=== PATIENT | male | born 1970 | race Caucasian/White ===

== ENCOUNTER 2019-10-31 14:33 | Day surgery (SDC) | payer OTHER, SELFPAY ==
[2019-10-31 15:06] VITALS: BP 144/88; PULSE 56; RESP 22; TEMP 36.4; O2SAT 99; BMI 30.8
[2019-10-31] MEDS: Lactated Ringers 1,000 ML 100 ML IV (15:37)
[2019-10-31] MEDS: Cefazolin 2 GM in 0.9% Normal Saline 100 ML IV (16:06)
--- NOTE | 2019-10-31 16:14 | PCM.DC.URO ---
Discharge Diet: Light diet - advance as tolerated Discharge Activity: Return to Normal Activity Call your doctor if your incision/area has: Sudden Increased Bleeding Call your doctor if you observe: Fever of 101 or Higher Suture Line Care: Avoid Pulling/Pushing, Avoid Pinching/Bending Instructions: Treating Kidney Stones: Ureteroscopic Stone Removal Allergies/Adverse Reactions: Allergies Penicillins Allergy (Verified 10/30/19 16:19) Unknown Medications to take at Discharge Ramipril [Altace] 5 mg PO DAILY #30 capsule 04/26/17 Amlodipine [Norvasc] 5 mg PO DAILY 10/31/19 Aspirin [Aspir 81] 81 mg PO DAILY 10/31/19 Ciprofloxacin [Cipro] 500 mg PO BID #6 tab 10/31/19 Hydrocodone/Acetaminophen [Montrose 5-325 Tablet] 1 each PO Q4H PRN PRN 5 Days #15 tablet 10/31/19 Phenazopyridine [Pyridium] 100 mg PO TID PRN PRN 5 Days #14 tab 10/31/19 The following prescriptions were given: Ciprofloxacin [Cipro] 500 mg PO BID #6 tab Transmission Status: Pending to [facility] Hydrocodone/Acetaminophen [Montrose 5-325 Tablet] 1 each PO Q4H PRN PRN 5 Days #15 tablet PRN Reason: Pain Score 1-10/10 Transmission Status: Sent to [facility] Phenazopyridine [Pyridium] 100 mg PO TID PRN PRN 5 Days #14 tab PRN Reason: burning Transmission Status: Pending to [facility] Primary Care Physician: Jose Arita DO [Primary Care Provider] - Test Results: Test results from this visit will be discussed in further detail at your follow-up appointment, if applicable. Please Follow Up With: Niall Pete MD When: please call to make an appointment.
--- NOTE | 2019-10-31 17:29 | PCM.OPRPT ---
Report of Operation Date of Procedure: 10/31/19 Pre-Operative Diagnosis: Left large distal ureteral calculi Post-Operative Diagnosis: The same Surgery/Procedure Performed:: Cystoscopy, left retrograde pyelogram, balloon dilation of the left ureter, laser lithotripsy of stone and ureteroscopy of the left ureter. Basket of fragments. Left stent placement. Description of Surgical Findings:: 49-year-old male has been having intermittent pain for the last year on the left side he finally got a CAT scan that demonstrated a large stone causing obstruction of the left kidney with a large stone in the distal left ureter measures about 13 mm in size when taken back to surgery today to laser the stone he will need a balloon dilation and will place a stent. 49-year-old male taken back to the operating room after smooth induction of general anesthesia he was placed supine on the table with the legs in dorsolithotomy position, the penis and testicles were prepped and draped in usual sterile fashion, went into the bladder with a 21 Trinidadian rigid cystourethroscope, the entire length the urethra was normal the prostate was normal the trigone was normal inside the bladder there is no tumors or stones. I then cannulated the left ureteral orifice with a Glidewire and a Pollack catheter performed a retrograde pyelogram could see a large stone in the distal left ureter and contrast going up into the kidney. I then advanced a wire up into the left kidney left that wire in place backloaded off the wire and then left the wire in place, I then went back into the bladder with a 21 Trinidadian scope cannulated the left ureteral orifice with a wire and then a balloon dilator I advanced the balloon dilator up to the stone but not beyond the and perform dilation of the stone with a 12 Trinidadian 10 cm balloon dilator after this was accomplished then I backloaded the balloon dilator left the wire in place and left the safety wire in place and then over the working wire went in with a flexible ureteroscope the ureter was quite tight in the distal ureter I got through the ureteral orifice and then I found an area of very tight narrowing and then behind this was the stone there was actually one large stone and one smaller stone I started with lithotripsy on the smaller stone lasered into the little tiny pieces and then I went to the larger stone and lasered this little tiny pieces was quite a large stone took a long time the laser Lasering it the stone fragments and kept coming back down on the flexible scope making it difficult to continue to work so then I backed out the flexible scope during this process and I lost safety wire I then went back in with the semirigid ureteroscope put the safety wire in place backloaded off the safety wire and then went back into the bladder next to the safety wire. This time I went with a semirigid ureteroscope was able to get in the distal ureter could see the stones that were stuck behind the area of inflammation and narrowing in the ureter continued to laser the stone some more than once I thought I had the stones all lasered a little tiny pieces then I used a flexible basket and I basketed fragments I then and when the last basketing grabbed the ladder fragments but then I could not pull out the ureter I did not pull hard so I left a basket in place I cut off the handle the basket backloaded off the basket over the ureteroscope and then went back in use the laser again to laser the stones out of the basket this broke to basket 3 and then I pulled on the basket wire and then the basket came out more stones came out with the basket then I kept lasering some more stones in the distal ureter I backloaded off out of the ureter and then put it safety wire back in and then went in with the flexible ureteroscope I went all the way up to the kidney with the flexible ureteroscope worked my way down the ureter there is no major fragments along the course of the ureter got to the distal ureter just infused tiny fragments there in the distal ureter but nothing that needed more treatment of these were tiny fragments that should pass on their own I then put a wire back up into the left kidney and then over the wire I advanced a stent we backloaded the scope over the wire and then advanced a 6 Trinidadian by 26 cm stent once a stent was in good position I pulled the wire the stent coiled in the kidney bladder good position I then drained the bladder completely we left the string on the stent but I did cut the string short so would get extracted accidentally. Patient's anesthetic was reversed taken back to PACU good condition I went spoke to the family regarding the stone and the lasering of the stone procedure. Type of Anesthesia:: General Drains: stent left side 6fr x 26 cm - Admit VTE Documentation VTE Present on Admission: No VTE Mechan Device Prophylaxis: SCD's
[2019-10-31 17:39] VITALS: BP 138/88; BP 144/88; PULSE 73; RESP 16; TEMP 36.9; O2SAT 99
[2019-10-31 17:45] VITALS: BP 144/88; BP 145/95; PULSE 67; RESP 20; O2SAT 99
[2019-10-31 18:00] VITALS: BP 144/88; BP 156/98; PULSE 67; RESP 18; O2SAT 100
[2019-10-31 18:07] VITALS: BP 144/88; BP 147/90; RESP 16; TEMP 36.8; O2SAT 100
[2019-10-31 18:32] VITALS: BP 144/85; BP 144/88; PULSE 66; RESP 16; TEMP 36.3; O2SAT 99
== END 2019-10-31 18:44 | disposition home or self-care (01) ==
LOC: SDC 14:36 → AC 14:37
PROVIDERS: PCP Family Medicine; Referring Provider Urology; Visit Provider Urology
PROC: 0TJ98ZZ Inspection of Ureter, Via Natural or Artificial Opening Endoscopic (ICD-10-PCS; CPT 52352; principal; 2019-10-31 15:50)
DX: N20.1 Calculus of ureter (principal); I10 Essential (primary) hypertension; K21.9 Gastro-esophageal reflux disease without esophagitis; I69.322 Dysarthria following cerebral infarction; Z79.899 Other long term (current) drug therapy; Z79.82 Long term (current) use of aspirin
CPT/HCPCS: 00918; 52356; 76000; J7120; C1769; C2617; J2405

== ENCOUNTER → 2020-04-18 13:33 | Outpatient (CLI) | payer OTHER, SELFPAY ==
--- NOTE | 2020-04-18 13:39 | CT_ITS ---
STUDY: CT ABDOMEN AND PELVIS WITHOUT CONTRAST REASON FOR EXAM: Male, 49 years old. Right flank pain RADIATION DOSAGE (If Supplied By Facility): CTDIvol = ( 13.87 ) mGy, DLP = ( 715.01 ) mGycm TECHNIQUE: Transaxial images were obtained from the dome of the diaphragm to the symphysis pubis without oral contrast, and without intravenous contrast. Sagittal and coronal images were reconstructed. Individualized dose optimization techniques were used for this CT. COMPARISON: None. FINDINGS: Evaluation of the abdominal viscera is limited in the absence of intravenous contrast. The visualized lung bases are clear. The visualized portions of the heart and pericardium are within normal limits. There are no calcified gallstones present. There is a simple cyst noted in the liver. The spleen is normal in size. The pancreas demonstrates an unremarkable unenhanced appearance. The adrenal glands are within normal limits. The left kidney is atrophic. There are bilateral subcentimeter nonobstructing renal collecting system stones, measuring up to 2 mm. There are no ureteral stones. There is no hydronephrosis. Normal visualized stomach. There is no bowel obstruction or inflammation. The appendix is visualized and appears normal. The aorta is normal in caliber. There is no abdominal or pelvic free air, free fluid, fluid collection or lymphadenopathy. There are no destructive osseous lesions. CT/Abdomen/Pelvis without Cont IMPRESSION: Bilateral subcentimeter nonobstructing renal collecting system stones, measuring up to 2 mm. No ureteral stones. No hydronephrosis. Atrophic left kidney. No bowel obstruction or inflammation. Normal appendix. Electronically Signed: Mike Bradley, at 14:09 EDT Tel , Service support ,
== END ==
PROVIDERS: PCP Family Medicine; Referring Provider Urology; Visit Provider Urology
DX: N20.1 Calculus of ureter (principal)
CPT/HCPCS: 74176

== ENCOUNTER → 2020-11-25 13:06 | Outpatient (CLI) | payer OTHER, SELFPAY | PROVIDERS: PCP Family Medicine; Referring Provider Physician Assistant; Visit Provider Physician Assistant | DX: Z03.818 Encounter for observation for suspected exposure to other biological agents ruled out (principal) | CPT/HCPCS: 87635; C9803; U0002 ==

== ENCOUNTER → 2022-02-06 | Outpatient (CLI) | payer OTHER, SELFPAY | END | disposition home or self-care (01) | LOC: MTLAB 10:40 | PROVIDERS: PCP Family Medicine; Referring Provider Urology; Visit Provider Urology | DX: Z12.5 Encounter for screening for malignant neoplasm of prostate (principal) | CPT/HCPCS: 36415; 84153; G0103 ==

== ENCOUNTER → 2022-03-26 | Outpatient (CLI) | payer OTHER, SELFPAY ==
--- NOTE | 2022-03-26 09:19 | EKG12_ITS ---
Test Reason : PREOP Blood Pressure : / mmHG Vent. Rate : 071 BPM Atrial Rate : 071 BPM P-R Int : 156 ms QRS Dur : 078 ms QT Int : 366 ms P-R-T Axes : 011 -25 018 degrees QTc Int : 397 ms Normal sinus rhythm Normal ECG Confirmed by SUMEET MURPHY, CHELO ([id number]), editor producer ZE KEEN ([id number]) on 03/27/2022 10:30:31 A M Referred By: Todd Osborn Confirmed By:SAMUEL FAY MD
[2022-03-26 11:22] LABS: Absolute Lymphocyte Count 1.86 X10^3/uL (0.83-4.51); Absolute Neutrophil Count 7.2 X10^3/uL (2.0-7.7); Basophil# 0.06 X10^3/uL; Basophil% 0.6 % (0-1); Eosinophil# 0.09 X10^3/uL; Eosinophils% 0.9 % (0-5); Hematocrit 45.3 % (40-54); Hemoglobin 15.1 g/dL (13.0-16.5); Lymphocyte # 1.86 X10^3/ul (0.83-4.51); Lymphocyte % 18.4 % (19-41); Mean Corp Hgb Conc 33.3 g/dL (32-36); Mean Corpuscular Hgb 32.5 pg (27.0-32.0); Mean Corpuscular Volume 97.6 fL (80-94); Monocyte# 0.82 X10^3/uL; Monocyte% 8.1 % (0-10); NRBC Flagged by Analyzer 0 % (0-5); Neutrophil # 7.21 X10^3/uL (2.7-7.7); Neutrophil % 71.4 % (47-70); Platelet Count 311 K/mm3 (150-450); RBC Distribution Width CV 12.7 % (11.6-14.6); RBC Distribution Width SD 45.4 fl (35.1-43.9); Red Blood Count 4.64 M/mm3 (4.6-6.2); White Blood Count 10.1 K/mm3 (4.4-11.0)
[2022-03-26 11:28] LABS: International Normalized Ratio 0.9; Prothrombin Time (Protime)PT. 11.8 SECONDS (11.7-14.9)
[2022-03-26 11:47] LABS: Anion Gap 5 (5-15); BUN 26 mg/dL (7-18); BUN/Creat Ratio 21.7 RATIO (10-20); Calcium,Total 9.1 mg/dL (8.5-10.1); Chloride 105 mmol/L (98-107); EST Glomerular Filtration Rate 67 mL/min (>60); Est Glom Filt Rate - Afr Amer 81 mL/min (>60); Glucose 93 mg/dL (74-106); Potassium 4.4 mmol/L (3.5-5.1); Sodium Level 140 mmol/L (136-145)
== END | disposition home or self-care (01) ==
LOC: PSN 08:51
PROVIDERS: PCP Family Medicine; Referring Provider Orthopaedic Surgery; Visit Provider Orthopaedic Surgery
DX: Z01.818 Encounter for other preprocedural examination (principal)
CPT/HCPCS: 36415; 80048; 85025; 85610; 85730; 93005

== ENCOUNTER 2022-07-16 10:49 | Observation (INO) | payer OTHER, SELFPAY ==
[2022-07-16] VITALS (10 sets, daily range): BP systolic 149–177; BP diastolic 90–107; PULSE 58–88; RESP 16–18; TEMP 35.9–37.1; O2SAT 95–99; BMI 27.7; BMI 27.6
--- NOTE | 2022-07-16 11:38 | CT_ITS ---
STUDY: CT BRAIN WITHOUT CONTRAST REASON FOR EXAM: Male, 51 years old. Dizziness, prior stroke RADIATION DOSAGE (If Supplied By Facility): CTDIvol = ( 47.06 ) mGy, DLP = ( 890.33 ) mGycm TECHNIQUE: Transaxial CT imaging of the brain was performed without administration of intravenous contrast material. Individualized dose optimization techniques were used for this CT. COMPARISON: No relevant priors. FINDINGS: Normal soft tissue structures. Normal calvarium. Normal size ventricles and extra-axial spaces for the patient''s age. Normal white matter tracts of the cerebral hemispheres. Annual colon in the anterior limb of the left internal capsule. Normal brainstem. Normal cerebellum. There is no intracranial hemorrhage. There are no findings of an acute ischemic infarction. Minimal mucosal thickening of the ethmoid sinuses. CT/Brain/Head without Contrast IMPRESSION: Tiny lacunae seen in the anterior limb of the left internal capsule. Electronically Signed: Dionicio Gonzales MD at 12:36 EDT ,
--- NOTE | 2022-07-16 11:40 | EKG12_ITS ---
Test Reason : HTN/DIZZY Blood Pressure : / mmHG Vent. Rate : 063 BPM Atrial Rate : 063 BPM P-R Int : 162 ms QRS Dur : 092 ms QT Int : 418 ms P-R-T Axes : 006 -24 027 degrees QTc Int : 427 ms Normal sinus rhythm Minimal voltage criteria for LVH, may be normal variant ( R in aVL ) Borderline ECG Confirmed by LACHO MURPHY, JOANN ([id number]), deputy editor in chief ZE KEEN ([id number]) on 07/20/2022 1:08:34 PM Referred By: BREN Confirmed By:JOANN MONK MD
--- NOTE | 2022-07-16 11:42 | EX.ED.DYSGE1 ---
HPI History of Present Illness Chief Complaint: Hypertension Informant: patient Narrative Narrative: Patient presents with some dizziness and elevated blood pressure. He does have a history of blood pressure on 2 meds. He took an extra amlodipine this morning. But he notes that his blood pressures been up. It is normally about 130/80. He was diagnosed with blood pressure about 5 years ago after he had a stroke. Since the stroke he has had some residual speech difficulty and he also does have some mild dizziness that has occurred since then. It is usually very manageable and he does not take anything specifically for that. However, the dizziness is increased over approximately the last few days to a week. It did coincide with the onset of COVID symptoms. He was positive on Wednesday. He was started on Lagevrio. Not having focal numbness tingling weakness. Not having visual changes. Nothing specifically makes the dizziness better or worse. It does not sound like true vertigo but more of an overall sense of imbalance. PFSH PFSH Home Medications ramipril 5 mg capsule 5 mg PO DAILY ##30 04/26/17 [Rx Last Taken 10/31/19 06:00] amlodipine 5 mg tablet 5 mg PO DAILY 10/31/19 [History Last Taken 10/31/19 06:00] aspirin 81 mg tablet,delayed release 81 mg PO DAILY 10/31/19 [History Last Taken Unknown] allopurinol 100 mg tablet 100 mg PO DAILY 07/16/22 [History Last Taken Unknown] atorvastatin 40 mg tablet 40 mg PO QHS 07/16/22 [History Last Taken Unknown] Allergy/AdvReac Type Severity Reaction Status Date / Time Penicillins Allergy Unknown Verified 07/16/22 10:49 Social History Smoking Status: Never smoker ROS ROS ED Constitutional Constitutional ED: Reports subjective Eyes Eyes: Denies change in vision ENT ENT ED: Reports sore throat Cardiovascular Cardiovascular: Denies chest pain or palpitations Respiratory/Chest Respiratory/Chest: Reports cough; Denies dyspnea Gastrointestinal Gastrointestinal: Reports other Details: Appetite has been down mildly with COVID ; Denies nausea or vomiting Musculoskeletal Musculoskeletal: Reports myalgias Integumentary Denies Abrasions or rash Neurologic Neurologic: Reports other Details: See history of present illness ; Denies headache(s) or weakness Hematologic/Lymphatic Hematologic/Lymphatic: Reports other Details: Patient does take baby aspirin ; Denies anemia Allergic/Immunologic Allergic/Immunologic ED: Denies urticaria EXAM Physical Exam Const Vital Signs: 07/16/22 10:50 07/16/22 11:15 07/16/22 14:25 Temperature 96.7 F L Temperature Source Temporal Pulse Rate 70 Respiratory Rate 16 Respiratory Effort Normal Non-Labored Respiratory Pattern Normal Blood Pressure 177/107 H 162/102 H Blood Pressure Mean 130 122 Pulse Ox 99 Oxygen Delivery Method Room Air Positive well nourished and well developed General Appearance ED: well developed and NAD; Negative for cyanotic or diaphoretic HEENT Reports moist mucous membranes Eyes PERRL and EOMs intact bilaterally Eyes Narrative: No nystagmus even with extreme lateral gaze or with positional changes General Eye ED: Negative for pale conjunctiva or scleral icterus Neck no lymphadenopathy Resp normal respiratory effort Cardio regular rate and regular rhythm GI normal to inspection, nondistended, normoactive bowel sounds and non-tender Palpation: soft Back/Spine no CVA tenderness Extremity normal to inspection General Extremety ED: Negative for edema or tenderness General Extremity: Negative for edema Neuro Neuro Narrative: Patient awake alert appropriate. Coordinated motion. No weakness. He has slight difficulty with speech but this is chronic from prior stroke and does not affect his ability to be under stood in any way. Although this would give him 1 point for NIH this is not an acute change. Sensorium / Orientation: alert Psych mental status grossly normal Skin no rashes or lesions noted and no wounds MDM MDM MDM Narrative Medical decision making narrative: Patient's blood work shows CBC with just minimal elevation in hemoglobin. This might be due to mild dehydration. Electrolytes are overall normal. Glucose is normal. CT scan did show tiny lacunar seen in anterior limb of the left internal capsule. This was discussed with radiologist. This is new finding since his last CT. But we do not have a recent CT. I do not know if this is acute in the cause of his symptoms. He did have some dizziness after his prior stroke but that was more of a brainstem stroke. He has other reasons for the dizziness including both Legevrio. However, this patient has had prior strokes, his blood pressure is up, he has higher risk. Therefore we have to be acutely concerned about the CT finding. We are attempting to contact [facility] so they can download copies of their most recent images that allow comparison. We did discuss the case with the [facility] transfer line. But they have 26 people waiting for beds including a person has been waiting 2 days at an outside hospital. They do not have the capacity at this time to accept him. They state the rest of the [facility] system is also full and [place]. We discussed this with the patient and we will keep him here. Case was also discussed with hospitalist. Lab Data Attestation: I reviewed the patient's lab results. Labs: Laboratory Results - last 24 hr 07/16/22 07/16/22 11:11 11:11 WBC 5.9 RBC 5.31 Hgb 17.3 H Hct 47.8 MCV 90.0 MCH 32.6 H MCHC 36.2 H RDW Std Deviation 39.8 RDW Coeff of Suzi 12.0 Plt Count 244 MPV 10.0 Immature Gran % (Auto) 0.200 Neut % (Auto) 72.0 H Lymph % (Auto) 17.7 L [place] % (Auto) 8.8 Eos % (Auto) 1.0 Baso % (Auto) 0.3 Absolute Neuts (auto) 4.2 Absolute Lymphs (auto) 1.04 Nucleated RBC % 0 Sodium 138 Potassium 3.8 Chloride 105 Carbon Dioxide 24.0 Anion Gap 9 BUN 13 Creatinine 1.07 Estim Creat Clear Calc 79.84 Est GFR (MDRD) Af Amer 93 Est GFR (MDRD) Non-Af 77 BUN/Creatinine Ratio 12.1 Glucose 112 H Calcium 8.9 Radiography Diagnostic Testing: Clinical Impression(s) from Imaging Studies Brain CT 07/16/22 11:38 IMPRESSION: Tiny lacunae seen in the anterior limb of the left internal capsule. Electronically Signed: Dionicio Gonzales MD at 12:36 EDT , EKG Initial EKG: Comments: EKG done as part of work-up of blood pressure and dizziness. EKG read by me shows a normal sinus rhythm with overall rate at 63. There is no ectopy. No acute ST elevation or depression. UT interval, QRS duration and QTc are normal. The EKG is similar to 26 March Discharge Plan Dx/Rx/DC Orders Clinical Impression: Dizziness, Elevated blood pressure reading, Abnormal finding on CT scan Disposition Disposition: Acute Care Hospital [facility]
[2022-07-16] MEDS: cloNIDine HCl 0.1 MG Tablet PO (11:50)
[2022-07-16 11:55] LABS: Absolute Lymphocyte Count 1.04 X10^3/uL (0.83-4.51); Absolute Neutrophil Count 4.2 X10^3/uL (2.0-7.7); Basophil# 0.02 X10^3/uL; Basophil% 0.3 % (0-1); Eosinophil# 0.06 X10^3/uL; Hematocrit 47.8 % (40-54); Hemoglobin 17.3 g/dL (13.0-16.5); Lymphocyte # 1.04 X10^3/ul (0.83-4.51); Lymphocyte % 17.7 % (19-41); Mean Corp Hgb Conc 36.2 g/dL (32-36); Mean Corpuscular Hgb 32.6 pg (27.0-32.0); Monocyte# 0.52 X10^3/uL; Monocyte% 8.8 % (0-10); NRBC Flagged by Analyzer 0 % (0-5); Neutrophil # 4.23 X10^3/uL (2.7-7.7); Platelet Count 244 K/mm3 (150-450); RBC Distribution Width SD 39.8 fl (35.1-43.9); Red Blood Count 5.31 M/mm3 (4.6-6.2); White Blood Count 5.9 K/mm3 (4.4-11.0)
[2022-07-16 12:04] LABS: Anion Gap 9 (5-15); BUN 13 mg/dL (7-18); BUN/Creat Ratio 12.1 RATIO (10-20); Calcium,Total 8.9 mg/dL (8.5-10.1); Chloride 105 mmol/L (98-107); Creatinine, Serum 1.07 mg/dL (0.70-1.30); EST Glomerular Filtration Rate 77 mL/min (>60); Est Glom Filt Rate - Afr Amer 93 mL/min (>60); Estimated Creatinine Clearance 79.84 ml/min; Glucose 112 mg/dL (74-106); Potassium 3.8 mmol/L (3.5-5.1); Sodium Level 138 mmol/L (136-145)
--- NOTE | 2022-07-16 14:38 | PCM.HP.STD ---
HPI - General General Date of Admission: 07/16/22 Date of Service: 07/16/22 Chief Complaint: Imbalance, Dizziness, Elevated BP, recent COVID + Dx. HPI Narrative The patient is a 51 y/o M w/ PMHx: CVA ~ 5 years prior with residual speech difficulties and mild dizziness associated, HTN, HLD, Gout who presents to the [facility] ED on 07/16/22 with history of onset of dizziness with elevated blood pressures noted to currently be on 2 blood pressure medications prompting him to take an extra of his of his amlodipine this morning however his blood pressure remained up noting it is normally 130/80 noting specifically that his dizziness is increased over the last few days to 1 week with specifically coincided onset of COVID type symptoms (headache, low grade T, congestion, rhinorrhea, cough, sore throat, myalgias, nausea, poor intake) with a positive test on Wednesday with full COVID vaccination status including boosters with initiation at that time on with no specific neurological new deficits or visual changes but no specific vertiginous just an overall sense of increased imbalance. He notes this has been constant but worse in severity starting the week prior mid-week. Work-up in the ED included T96.7, heart rate 70, BP 177/107, respiratory rate 16, 99% on room air, CBC with MAC 5.9, hemoglobin of 17.3, platelet 244 without marked shift, BMP with glucose 112 otherwise not marked appearing, EKG with sinus rhythm with no acute evidence of ischemia, CT head with a tiny lacunae seen in the anterior limb of the internal left capsule new from his prior last CT imaging. He did have CT head at [facility] 08/2021 that is attempting to be accessed for comparison. [facility], [facility] Medical History (Updated 07/16/22 @ 18:[address] Renetta Abad MD) Chronic back pain GERD (gastroesophageal reflux disease) Gout High cholesterol Hypertension Stroke/cerebrovascular accident Home Medications amlodipine 5 mg tablet 5 mg PO DAILY heart 10/31/19 [History Last Taken 07/16/22] aspirin 81 mg tablet,delayed release 81 mg PO DAILY heart 10/31/19 [History Last Taken 07/16/22] allopurinol 100 mg tablet 100 mg PO DAILY gout 07/16/22 [History Last Taken 07/16/22] omeprazole 40 mg capsule,delayed release 40 mg PO DAILY gerd 07/16/22 [History Last Taken 07/16/22] ramipril 5 mg capsule 5 mg PO DAILY bp 07/16/22 [History Last Taken 07/16/22] zolpidem 10 mg tablet (Ambien) 10 mg PO QHS PRN Sleep 07/16/22 [History Last Taken 2 Weeks Ago ~07/02/22] Allergy/AdvReac Type Severity Reaction Status Date / Time Penicillins Allergy Unknown Verified 07/16/22 10:49 Family History (Updated 07/16/22 @ 18:[address] Renetta Abad MD) Mother Diabetes Hypertension Father Diabetes Hypertension Surgical History (Updated 07/16/22 @ 18:[address] Renetta Abad MD) H/O laminectomy H/O lithotripsy Status post percutaneous transluminal angioplasty ([employer]) with stent placement Social History (Updated 07/16/22 @ 18:[address] Renetta Abad MD) household members: spouse Smoking Status: Never smoker alcohol intake: current alcohol intake frequency: holidays/special occasions only substance use type: does not use ROS ROS Narrative Admission Review of Systems: CONSTITUTIONAL: No weight loss, + low grade fever, chills, weakness or fatigue. HEENT: + Headache, congestion, rhinorrhea, sore throat. Eyes: No visual loss, blurred vision, double vision or yellow sclerae. Ears, Nose, Throat: No hearing loss, sneezing. SKIN: No rash or itching, lesions, wounds. CARDIOVASCULAR: No chest pain, chest pressure or chest discomfort, palpitations, edema, orthopnea, syncopal events. RESPIRATORY: + cough, No dyspnea, marked sputum, wheezing, hemoptysis. GASTROINTESTINAL: + anorexia, nausea, No vomiting, diarrhea, abdominal pain, melena, BRBPR. GENITOURINARY: No dysuria, frequency, urgency or retention. NEUROLOGICAL: + headache, dizziness above baseline, Hx CVA w/ chronic dizziness and dysarthria. No syncope, paralysis, ataxia, numbness or tingling in the extremities, focal weakness, change in bowel or bladder control, seizure. MUSCULOSKELETAL: + muscle, back pain, joint pain or stiffness. HEMATOLOGIC: No anemia, bleeding or bruising. LYMPHATICS: No enlarged nodes. No history of splenectomy. PSYCHIATRIC: No history of depression or anxiety. ENDOCRINOLOGIC: No reports of sweating, cold or heat intolerance. No polyuria or polydipsia. ALLERGIES: No history of asthma, hives, eczema or rhinitis. Vital Signs Vital Signs Vital Signs: 07/16/22 10:50 07/16/22 11:15 07/16/22 14:25 Temperature 96.7 F L Temperature Source Temporal Pulse Rate 70 Respiratory Rate 16 Respiratory Effort Normal Non-Labored Respiratory Pattern Normal Blood Pressure 177/107 H 162/102 H Blood Pressure Mean 130 122 Pulse Ox 99 Oxygen Delivery Method Room Air Weight Weight: 187 lb 9.814 oz Body Mass Index (BMI) 27.7 Physical Exam Narrative Physical Examination: General: Awake, alert, oriented x 3 and cooperative, seated upright in the ED bed, fatigued, frequent coughing fits with attempts to talk. Skin: Normal color, normal turgor, no icterus, no cyanosis. HEENT: AT/NC, EOMI, PERRLA, mildly dry MM, no carotid bruits or JVD noted. Lungs: Diminished, greater bases, coughing elicited with any deep inspiratory effort, no rales, ronchi or wheezing. Heart: Regular rate and rhythm; no gallop, rub audible. Abdomen: Soft, NTTP, ND, hyperactive BS, no HSM. Extremities: No cyanosis, clubbing, or edema. Neurological: Patient awake, alert, oriented as noted, cognitive function intact; pupils equally reactive to light and accommodation, cranial nerves II-XII grossly normal, chronic dysarthria present and unchanged, moving all 4 extremities, no focal deficits, strength preserved, sensation intact, finger-nose and vbci-ru-avot appropriate, main complaint is dizziness and imbalance. Psychiatric: Affect appears fatigued, ill-appearing, no acute evidence of depressive or anxiety feelings. Results Lab / Micro Data Result Diagrams: 07/16/22 11:11 07/16/22 11:11 Labs: Laboratory Results - last 24 hr 07/16/22 11:11: WBC 5.9, RBC 5.31, Hgb 17.3 H, Hct 47.8, MCV 90.0, MCH 32.6 H, MCHC 36.2 H, RDW Std Deviation 39.8, RDW Coeff of Suzi 12.0, Plt Count 244, MPV 10.0, Immature Gran % (Auto) 0.200, Neut % (Auto) 72.0 H, Lymph % (Auto) 17.7 L, [place] % (Auto) 8.8, Eos % (Auto) 1.0, Baso % (Auto) 0.3, Absolute Neuts (auto) 4.2, Absolute Lymphs (auto) 1.04, Nucleated RBC % 0 07/16/22 11:11: Sodium 138, Potassium 3.8, Chloride 105, Carbon Dioxide 24.0, Anion Gap 9, BUN 13, Creatinine 1.07, Estim Creat Clear Calc 79.84, Est GFR (MDRD) Af Amer 93, Est GFR (MDRD) Non-Af 77, BUN/Creatinine Ratio 12.1, Glucose 112 H, Calcium 8.[address] 07/16/22 11:38 IMPRESSION: Tiny lacunae seen in the anterior limb of the left internal capsule. Electronically Signed: Dionicio Gonzales MD at 12:36 EDT Reading Location ID and State: [facility] / [place] , Service support , Assessment & Plan Assessment/Plan (1) CVA (cerebral vascular accident): PLAN: Plan The patient is a 51 y/o M w/ PMHx: CVA ~ 5 years prior with residual speech difficulties and mild dizziness associated, HTN, HLD, Gout who presents to the [facility] ED on 07/16/22 with history of onset of dizziness with elevated blood pressures noted to currently be on 2 blood pressure medications prompting him to take an extra of his of his amlodipine this morning however his blood pressure remained up noting it is normally 130/80 noting specifically that his dizziness is increased over the last few days to 1 week with specifically coincided onset of COVID type symptoms (headache, low grade T, congestion, rhinorrhea, cough, sore throat, myalgias, nausea, poor intake) with a positive test on Wednesday with full COVID vaccination status including boosters with initiation at that time on with no specific neurological new deficits or visual changes but no specific vertiginous just an overall sense of increased imbalance. #1. Increased dizziness, imbalance with atypical CT head findings concerning for tiny lacunar infarct of the anterior limb of the internal left capsule which is new from prior imaging concerning for New Recent CVA with history of prior stroke with right vertebral artery stenting: Will admit to PCU, will obtain MRI Brain,CTA head and neck, attempting to obtain recent imaging from [facility] to compare, will obtain ECHO, PT/OT/Speech/Nutrition evaluation per protocol. Will allow permissive HTN pending MRI, maintain on asa, statin w/ AM FLP, fall precautions. Mag, TSH, HgbA1c, FLP pending. Of note dizziness could certainly be secondary to #2, will continue working up #[address] head findings until MRI of obtained #2. Acute Viral Syndrome, COVID-19: Will maintain on COVID precautions, will obtain sputum cultures, respiratory viral panel and urine antigens, will obtain D-dimer, procalcitonin, CRP, CPK, Ferritin, LDH, trop and BNP, continue supportive care including q 2 hour, given no notably hypoxia will defer antiviral treatment and decadron at this time but continue to closely monitor. #3. Hypertension: We will maintain permissive hypertension pending further stroke work-up as noted #1, as needed agents per stroke protocol. #4. Hyperlipidemia: We will continue patient on statin therapy, FLP in a.m. #5. Gout: We will continue patient home allopurinol regimen. #6. GERD: We will continue patient home omeprazole. #7. Chronic insomnia: Patient normally takes zolpidem to sleep which was discussed and given sedated nature of this medication we will temporarily hold and will use low-dose temazepam if needed. Given patient chronic issues with imbalance another agent, potentially trazodone may be better. #8. DVT prophylaxis: SCDs, Lovenox Charges/Coding Visit Charges Inpatient E&M: 24110 Init Hosp L3
--- NOTE | 2022-07-16 15:19 | ED.RN ---
Dr. Abad Ok'd this RN to give patient food. Pt. given ham sandwich and juice.
[2022-07-16 16:08] LABS: D-Dimer Quantitative (DVT/PE) 0.34 FEU/ug/m (0.27-0.49)
--- NOTE | 2022-07-16 16:15 | MRI_ITS ---
STUDY: MRI BRAIN WITHOUT CONTRAST REASON FOR EXAM: Male, 51 years old. CVA TECHNIQUE: Standardized multiplanar fat and water weighted pulse sequences were obtained. COMPARISON: CT of the brain 07/16/2022 MRI of the brain 05/04/2017 FINDINGS: Normal size of the ventricles and extra-axial spaces for the patient''s age. Normal white matter tracts of the supratentorial brain. Normal bilateral basal ganglia. Normal thalami. There is no extra-axial fluid accumulation. Normal flow voids within the major intracranial circulation suggesting patency by spin echo criteria. Normal sella turcica, pituitary gland, infundibular stalk, optic chiasm and hypothalamus. Normal tectal plate and pineal gland. Normal midbrain, and medulla. Mild chronic ischemic changes within the left pontine body. Normal cerebellum. Normal basal cisterns. Normal bilateral temporal bones. Normal bilateral internal auditory canals. No demonstrated orbital abnormality, within the constraints of a routine brain study. Minor mucosal thickening of the ethmoid and sphenoid sinuses Normal calvarium and skull base. Normal visualized soft tissue structures. Normal visualized upper cervical spine. MRI/Brain without Contrast IMPRESSION: Mild chronic ischemic changes in left pontine body. No significant periventricular white matter disease or acute infarct Electronically Signed: Todd Hassan MD at 18:21 EDT ,
--- NOTE | 2022-07-16 16:15 | CT_ITS ---
We are attempting to reach an attending provider to discuss findings. An addendum with communication details will be sent when the communication is complete. STUDY: CTA HEAD AND NECK WITH CONTRAST REASON FOR EXAM: Male, 51 years old. CVA. RADIATION DOSAGE (If Supplied By Facility): CTDIvol = ( ) mGy, DLP = ( 795.90 ) mGycm TECHNIQUE: CT angiography was performed with a multi-detector CT scanner. Data acquisition was obtained from the skull base through the vertex following intravenous administration of IV 100mL [id number]-370. MIP images were reconstructed from the axial data set. Post-processing of the angiographic images was performed, with multiplanar reformation and 3D reconstruction. Individualized dose optimization techniques were used for this CT. COMPARISON: CT of the brain, July 16, 2022. FINDINGS: Normal bilateral petrous carotid arteries. Normal right cavernous carotid artery with a normal supraclinoid bifurcation. Normal left cavernous carotid artery with a normal supraclinoid bifurcation. Normal right A1 segments of the anterior cerebral artery. Normal left A1 segments of the anterior cerebral artery. Normal intact anterior communicating artery (ACOM). Normal bilateral A2 segments of the anterior cerebral arteries. Normal right M1 and M2 segments of the middle cerebral arteries, with a normal M1 bifurcation. Normal left M1 and M2 segments of the middle cerebral arteries, with a normal M1 bifurcation. There is non-visualization of the right posterior communicating artery (PCOM). There is non-visualization of the left posterior communicating artery (PCOM). Normal bilateral vertebral arteries. Normal basilar artery with a normal basilar bifurcation. The visualized bilateral superior cerebellar (SCA) arteries are normal. Normal bilateral P1, P2 and visualized P3 segments of the posterior cerebral arteries. There is no demonstrated aneurysm of the huslia of [place]. There is no demonstrated abnormality of the visualized brain. AORTIC ARCH: Normal visualized aortic arch. Normal origins of the brachiocephalic, left common carotid, and left subclavian arteries. RIGHT CAROTID ARTERIES: Normal right common carotid artery (CCA). Minimal calcified plaque at the carotid bifurcation and carotid bulb without significant stenosis. Normal origin of the right internal carotid (ICA) artery without a hemodynamically significant stenosis. Normal visualized cervical portion of the right internal carotid artery. Normal origin of the right external carotid artery (ECA). LEFT CAROTID ARTERIES: Normal left common carotid artery (CCA). Minimal plaque at the carotid bifurcation and carotid bulb without significant stenosis. Normal origin of the left internal carotid (ICA) artery without a hemodynamically significant stenosis. Normal visualized cervical portion of the left internal carotid artery. Normal origin of the left external carotid artery (ECA). VERTEBRAL ARTERIES: Normal bilateral vertebral arteries. CT/STROKE CTA Head AND Neck W/Con IMPRESSION: 1. Normal CTA Head with contrast. 2. Minimal atherosclerotic changes of bilateral carotid arteries without significant stenosis. Electronically Signed: Jasbir Solomon DO at 17:24 EDT ,
[2022-07-16 16:35] LABS: BNP,B-Type NATRIURETIC PEPTIDE 16.9 pg/mL (0-100)
[2022-07-16 16:39] LABS: AST(SGOT) 22 U/L (15-37); Alanine Aminotransfer ALT/SGPT 34 U/L (16-61); Albumin, Serum 3.7 g/dL (3.2-5.0); Alkaline Phosphatase 89 U/L (45-117); Bilirubin, Direct 0.12 mg/dL (0.00-0.30); CRP 4.58 mg/L (0.0-3.0); Ferritin 178 ng/mL (26-388); Globulin 3.4 g/dL (2.2-4.2); LDH 226 U/L (87-241); Magnesium 1.8 mg/dL (1.6-2.6); Protein, Total 7.1 g/dL (6.4-8.2); Troponin-I HS 8 pg/mL (3.0-78.0)
[2022-07-16] MEDS: 0.9% Normal Saline 1,000 ML 100 ML IV (17:56)
--- NOTE | 2022-07-16 18:45 | PCM.HOSP.N ---
Hospitalist Note Discussed results with patient which included unremarkable CTA head neck and eventually MRI also resulted with fortunately no acute stroke findings therefore CT head likely an over read over as previously noted on prior imaging. Discussed possible plans of care and given current presentation will de-escalate stroke evaluation including stopping echo, stopping TSH/hemoglobin A1c/lipid panel, removing speech therapy consultation however will continue physical and occupational given significant dizziness and imbalance which is likely been more pronounced above his baseline secondary to his acute COVID illness.
[2022-07-16 19:39] LABS: Procalcitonin < 0.04 ng/mL (0.00-0.09)
[2022-07-16] MEDS: Enoxaparin 30 MG/0.3 ML Syringe SC (20:42)
[2022-07-16] MEDS: Temazepam 15 MG Capsule PO (21:32)
[2022-07-17 03:15] VITALS: BP 137/85; PULSE 53; RESP 17; TEMP 36.8; O2SAT 99
[2022-07-17 03:52] VITALS: PULSE 52
[2022-07-17 05:56] LABS: Absolute Neutrophil Count 2.6 X10^3/uL (2.0-7.7); Basophil# 0.02 X10^3/uL; Basophil% 0.4 % (0-1); Eosinophil# 0.21 X10^3/uL; Hematocrit 45.3 % (40-54); Hemoglobin 16.3 g/dL (13.0-16.5); Lymphocyte % 32.6 % (19-41); Mean Corpuscular Hgb 32.7 pg (27.0-32.0); Mean Corpuscular Volume 90.8 fL (80-94); Mean Platelet Vol. 9.9 fl (6.2-12.0); Monocyte# 0.66 X10^3/uL; Monocyte% 12.6 % (0-10); NRBC Flagged by Analyzer 0 % (0-5); Neutrophil # 2.62 X10^3/uL (2.7-7.7); Neutrophil % 50.2 % (47-70); Platelet Count 236 K/mm3 (150-450); RBC Distribution Width CV 11.9 % (11.6-14.6); RBC Distribution Width SD 39.7 fl (35.1-43.9); Red Blood Count 4.99 M/mm3 (4.6-6.2); White Blood Count 5.2 K/mm3 (4.4-11.0)
[2022-07-17 06:31] LABS: AST(SGOT) 17 U/L (15-37); Alanine Aminotransfer ALT/SGPT 28 U/L (16-61); Albumin, Serum 3.2 g/dL (3.2-5.0); Alkaline Phosphatase 80 U/L (45-117); Anion Gap 6 (5-15); BUN 12 mg/dL (7-18); Calcium,Total 8.7 mg/dL (8.5-10.1); Chloride 105 mmol/L (98-107); EST Glomerular Filtration Rate 83 mL/min (>60); Est Glom Filt Rate - Afr Amer 100 mL/min (>60); Estimated Creatinine Clearance 85.43 ml/min; Globulin 3.1 g/dL (2.2-4.2); Glucose 91 mg/dL (74-106); Potassium 3.9 mmol/L (3.5-5.1); Protein, Total 6.3 g/dL (6.4-8.2); Sodium Level 137 mmol/L (136-145)
[2022-07-17 06:57] VITALS: PULSE 51
[2022-07-17 09:23] VITALS: BP 154/89; PULSE 65; RESP 16; TEMP 36.6; O2SAT 98
[2022-07-17] MEDS: Pantoprazole Sodium 40 MG Tablet PO (09:29)
[2022-07-17] MEDS: amLODIPine 5 MG Tablet PO (09:29)
[2022-07-17] MEDS: Ramipril 5 MG Capsule PO (09:29)
[2022-07-17] MEDS: Allopurinol 100 MG Tablet PO (09:29)
[2022-07-17] MEDS: Aspirin E.C. 81 MG Tablet PO (09:29)
[2022-07-17 10:00] VITALS: BP 154/89; PULSE 65; RESP 16; TEMP 36.6; O2SAT 98
[2022-07-17] MEDS: Acetaminophen 325 MG Tablet 650 MG PO (10:43)
--- NOTE | 2022-07-17 10:54 | PN.HOSP_ITS ---
Subjective Subjective DOS: 07/17/2022 CC: [] [] Objective Data Objective Data Vital Signs: Vital Signs Temp Pulse Resp BP Pulse Ox O2 Del Method 97.9 F 65 16 154/89 H 98 Room Air 07/17/22 10:00 07/17/22 10:00 07/17/22 10:00 07/17/22 10:00 07/17/22 10:00 07/17/22 10:37 Oxygen Delivery Method Room Air Weight: 85.7 kg Body Mass Index (BMI) 27.6 Intake & Output: Intake and Output for Last 24 Hours 07/15/22 07/16/22 07/17/22 23:59 23:59 23:59 Intake Total 340 / 340 1120 / 1120 Balance 340 / 340 1120 / 1120 Lab / Micro Data Result Diagrams: 07/17/22 04:58 07/17/22 04:58 Labs: Laboratory Results - last 24 hr 07/16/22 11:11: WBC 5.9, RBC 5.31, Hgb 17.3 H, Hct 47.8, MCV 90.0, MCH 32.6 H, MCHC 36.2 H, RDW Std Deviation 39.8, RDW Coeff of Suzi 12.0, Plt Count 244, MPV 10.0, Immature Gran % (Auto) 0.200, Neut % (Auto) 72.0 H, Lymph % (Auto) 17.7 L, [place] % (Auto) 8.8, Eos % (Auto) 1.0, Baso % (Auto) 0.3, Absolute Neuts (auto) 4.2, Absolute Lymphs (auto) 1.04, Nucleated RBC % 0 07/16/22 11:11: Sodium 138, Potassium 3.8, Chloride 105, Carbon Dioxide 24.0, Anion Gap 9, BUN 13, Creatinine 1.07, Estim Creat Clear Calc 79.84, Est GFR (MDRD) Af Amer 93, Est GFR (MDRD) Non-Af 77, BUN/Creatinine Ratio 12.1, Glucose 112 H, Calcium 8.9 07/16/22 11:11: D-Dimer Quant (PE/DVT) 0.34 07/16/22 11:11: Magnesium 1.8, Ferritin 178, Total Bilirubin 0.50, Direct Bilirubin 0.12, AST 22, ALT 34, Alkaline Phosphatase 89, Lactate Dehydrogenase 226, Troponin I High Sens 8, C-React Prot Ext Range 4.58 H, Total Protein 7.1, Albumin 3.7, Globulin 3.4 07/16/22 11:11: B-Natriuretic Peptide 16.9 07/16/22 18:36: Procalcitonin < 0.04 07/17/22 04:58: WBC 5.2, RBC 4.99, Hgb 16.3, Hct 45.3, MCV 90.8, MCH 32.7 H, MCHC 36.0, RDW Std Deviation 39.7, RDW Coeff of Suzi 11.9, Plt Count 236, MPV 9.9, Immature Gran % (Auto) 0.200, Neut % (Auto) 50.2, Lymph % (Auto) 32.6, [place] % (Auto) 12.6 H, Eos % (Auto) 4.0, Baso % (Auto) 0.4, Absolute Neuts (auto) 2.6, Absolute Lymphs (auto) 1.70, Nucleated RBC % 0 07/17/22 04:58: Sodium 137, Potassium 3.9, Chloride 105, Carbon Dioxide 26.0, Anion Gap 6, BUN 12, Creatinine 1.00, Estim Creat Clear Calc 85.43, Est GFR (MDRD) Af Amer 100, Est GFR (MDRD) Non-Af 83, BUN/Creatinine Ratio 12.0, Glucose 91, Calcium 8.7, Total Bilirubin 0.60, AST 17, ALT 28, Alkaline Phosphatase 80, Total Protein 6.3 L, Albumin 3.2, Globulin 3.1, Albumin/Globulin Ratio 1.0 Micro: Microbiology 07/16/22 21:35 Sputum, Expectorated/Coughed Gram Stain - Final 07/16/22 20:35 Mucosa - Nasopharyngeal Respiratory Panel (PCR) - Final 07/16/22 20:35 Urine, Clean Catch Legionella Antigen - Final 07/16/22 20:35 Urine, Clean Catch Streptococcus pneumoniae Antigen (M - Final Radiography Diagnostic Testing: Radiology Impression Brain CT 07/16/22 11:38 IMPRESSION: Tiny lacunae seen in the anterior limb of the left internal capsule. Electronically Signed: Dionicio Gonzales MD at 12:36 EDT , Brain MRI 07/16/22 16:15 IMPRESSION: Mild chronic ischemic changes in left pontine body. No significant periventricular white matter disease or acute infarct Electronically Signed: Todd Hassan MD at 18:21 EDT Reading Location ID and State: [facility] / [place] , Service support , Head/Neck CTA 07/16/22 16:15 IMPRESSION: 1. Normal CTA Head with contrast. 2. Minimal atherosclerotic changes of bilateral carotid arteries without significant stenosis. Electronically Signed: Jasbir Solomon DO at 17:24 EDT Reading Location ID and State: [facility] / [place] Tel [phone], Service support , ADDENDUM: 07/16/22 1734 IMPRESSION: 1. Normal CTA Head with contrast. 2. Minimal atherosclerotic changes of bilateral carotid arteries without significant stenosis. N.B. : The above Results were Read Back by Jasbir Solomon DO to Charge Nurse Riddhi Chase RN, and understanding confirmed on 07/16/2022 17:27:45 (ET). Electronically Signed: Jasbir Solomon DO at 17:24 EDT Reading Location ID and State: [facility] / [place] Tel [phone], Service support , Assessment & Plan Assessment/Plan PLAN: Plan 51-year-old male with a history of CVA 5 years ago with residual speech difficulties and mild dizziness, hypertension, gout who presented to [facility] ED on 07/16/2022 with new onset dizziness with elevated blood pressure. Dizziness was increasing over several days and he had COVID type symptoms. Had a positive test on Wednesday with full COVID vaccination status including boosters with initiation at that time on legevrio. Presented to ED and was admitted #Increased dizziness and imbalance Given unremarkable CTA head and neck and MRI with no acute stroke, CT head likely an overhead as previously noted on prior imaging Stroke evaluation de-escalated, echo discontinued, speech therapy discontinued as well as stroke labs Likely due to acute viral syndrome secondary to COVID #Acute viral syndrome secondary to COVID-19 COVID precautions, sputum culture, respiratory panel and urine antigens COVID labs obtained Supportive care #3.? Hypertension: We will maintain permissive hypertension pending further stroke work-up as noted #1, as needed agents per stroke protocol. #4.? Hyperlipidemia: We will continue patient on statin therapy, FLP in a.m. #5.? Gout: We will continue patient home allopurinol regimen. #6.? GERD: We will continue patient home omeprazole. #7.? Chronic insomnia: Patient normally takes zolpidem to sleep which was discussed and given sedated nature of this medication we will temporarily hold and will use low-dose temazepam if needed.? Given patient chronic issues with imbalance another agent, potentially trazodone may be better. #8.? DVT prophylaxis: SCDs, Lovenox
[2022-07-17] MEDS: traMADol 50 MG Tablet PO (11:26)
--- NOTE | 2022-07-17 11:49 | CASEMGMT ---
SW did not complete a PHQ 9 with patient as he did not have a Stroke or TIA. Yajaira Ponce [employer]
--- NOTE | 2022-07-17 12:29 | PCM.DC.SUM ---
Providers Date of Admission: 07/16/22 Date of Discharge: 07/17/22 Primary Care Physician: Dr. Jose Arita, DO Reason For Visit: CVA, COVID Diagnosis Discharge Diagnosis (1) CVA (cerebral vascular accident): Status: Acute Code(s): I63.9 - Cerebral infarction, unspecified Plan #Increased dizziness and imbalance #Acute viral syndrome secondary to COVID-19 #3.? Hypertension: #4.? Hyperlipidemia: #5.? Gout: #6.? GERD: #7.? Chronic insomnia: Medications at Discharge Home Medications amlodipine 5 mg tablet 5 mg PO DAILY heart 10/31/19 aspirin 81 mg tablet,delayed release 81 mg PO DAILY heart 10/31/19 allopurinol 100 mg tablet 100 mg PO DAILY gout 07/16/22 omeprazole 40 mg capsule,delayed release 40 mg PO DAILY gerd 07/16/22 ramipril 5 mg capsule 5 mg PO DAILY bp 07/16/22 zolpidem 10 mg tablet (Ambien) 10 mg PO QHS PRN Sleep 07/16/22 Hospital Course Summary of Care Provided Minutes Spent on Discharge: 20 Hospital Course: 51-year-old male with a history of CVA 5 years ago with residual speech difficulties and mild dizziness, hypertension, gout who presented to [facility] ED on 07/16/2022 with new onset dizziness with elevated blood pressure.? Dizziness was increasing over several days and he had COVID type symptoms.? Had a positive test on Wednesday with full COVID vaccination status including boosters with [facility] Presented to ED and was admitted and initially had an abnormal CT scan concerning for stroke. However CTA head and neck as well as MRI were unremarkable, felt that CT head was likely an overread. Stroke evaluation de-escalated. [place] that the sinus was acute on chronic exacerbated by acute viral syndrome. He did have swelling of the neck and MCP joint on his left hand, hurt with passive and active range of motion with Tylenol, tramadol, and ice. He does have a history of gout but has not had it in his hand before. Reports he would not have sought inpatient help for this problem and would like to be discharged home and follow-up as an outpatient. Does not appear septic or have any concerning signs or symptoms. Discharged home in stable condition Physical Exam Const alert and no apparent distress Constitutional Narrative: Oriented HEENT normocephalic and head/scalp atraumatic Eyes Eyes Narrative: EOM grossly intact, anicteric Neck supple Resp normal respiratory effort and clear to auscultation bilaterally Cardio regular rate and regular rhythm GI soft to palpation, non-tender and non-distended Extremity Extremity Narrative: No edema appreciated Neuro moves all extremities Neuro Narrative: Some word finding difficulties, mild Psych Psych Narrative: Cooperative Weight / BMI Weight Weight: 85.7 kg Body Mass Index (BMI) 27.6 ABG / Lab / Microbiology Data Result Diagrams: 07/17/22 04:58 07/17/22 04:58 Laboratory: Laboratory Results - last 24 hr 07/16/22 11:11: D-Dimer Quant (PE/DVT) 0.34 07/16/22 11:11: Magnesium 1.8, Ferritin 178, Total Bilirubin 0.50, Direct Bilirubin 0.12, AST 22, ALT 34, Alkaline Phosphatase 89, Lactate Dehydrogenase 226, Troponin I High Sens 8, C-React Prot Ext Range 4.58 H, Total Protein 7.1, Albumin 3.7, Globulin 3.4 07/16/22 11:11: B-Natriuretic Peptide 16.9 07/16/22 18:36: Procalcitonin < 0.04 07/17/22 04:58: WBC 5.2, RBC 4.99, Hgb 16.3, Hct 45.3, MCV 90.8, MCH 32.7 H, MCHC 36.0, RDW Std Deviation 39.7, RDW Coeff of Suzi 11.9, Plt Count 236, MPV 9.9, Immature Gran % (Auto) 0.200, Neut % (Auto) 50.2, Lymph % (Auto) 32.6, Randolph % (Auto) 12.6 H, Eos % (Auto) 4.0, Baso % (Auto) 0.4, Absolute Neuts (auto) 2.6, Absolute Lymphs (auto) 1.70, Nucleated RBC % 0 07/17/22 04:58: Sodium 137, Potassium 3.9, Chloride 105, Carbon Dioxide 26.0, Anion Gap 6, BUN 12, Creatinine 1.00, Estim Creat Clear Calc 85.43, Est GFR (MDRD) Af Amer 100, Est GFR (MDRD) Non-Af 83, BUN/Creatinine Ratio 12.0, Glucose 91, Calcium 8.7, Total Bilirubin 0.60, AST 17, ALT 28, Alkaline Phosphatase 80, Total Protein 6.3 L, Albumin 3.2, Globulin 3.1, Albumin/Globulin Ratio 1.0 Microbiology: Microbiology 07/16/22 21:35 Sputum, Expectorated/Coughed Gram Stain - Final 07/16/22 20:35 Mucosa - Nasopharyngeal Respiratory Panel (PCR) - Final 07/16/22 20:35 Urine, Clean Catch Legionella Antigen - Final 07/16/22 20:35 Urine, Clean Catch Streptococcus pneumoniae Antigen (M - Final Radiography Diagnostic Testing: Radiology Impression Brain CT 07/16/22 11:38 IMPRESSION: Tiny lacunae seen in the anterior limb of the left internal capsule. Electronically Signed: Dionicio Gonzales MD at 12:36 EDT Reading Location ID and State: [facility] / [place] , Service support , Brain MRI 07/16/22 16:15 IMPRESSION: Mild chronic ischemic changes in left pontine body. No significant periventricular white matter disease or acute infarct Electronically Signed: Todd Hassan MD at 18:21 EDT , Head/Neck CTA 07/16/22 16:15 IMPRESSION: 1. Normal CTA Head with contrast. 2. Minimal atherosclerotic changes of bilateral carotid arteries without significant stenosis. Electronically Signed: Jasbir Solomon DO at 17:24 EDT Reading Location ID and State: [facility] / [place] Tel [phone], Service support , ADDENDUM: 07/16/22 [id number] IMPRESSION: 1. Normal CTA Head with contrast. 2. Minimal atherosclerotic changes of bilateral carotid arteries without significant stenosis. N.B. : The above Results were Read Back by Jasbir Solomon DO to Charge Nurse Riddhi Chase RN, and understanding confirmed on 07/16/2022 17:27:45 (ET). Electronically Signed: Jasbir Solomon DO at 17:24 EDT Reading Location ID and State: [address] [place] [address] Tel [phone], Service support , D/C Instructions Discharge Diet: No restrictions Meaningful Use Info Meaningful Use Diagnoses (Choose all that apply): None applicable Discharge Plan Admission Admit Date/Time: 07/16/22 14:40 Primary Reason for Your Visit: Dizziness Attending Provider: Zee Ralph Primary Care Provider: Jose Arita Consulting Providers: Renetta Abad Instructions Patient Instructions: How COVID-19 Spreads, Infection Preventing Spread Additional Instructions / Restrictions: ? Would consider discussing your urine with your primary care provider before resuming as this can contribute to dizziness -Please call your primary care provider's office upon discharge to schedule a hospital follow up within 1 week. ?Continue COVID precautions -For any concerning signs or symptoms please call 911 or proceed to the nearest emergency department Discharge Orders/Prescriptions Prescriptions: Continued amlodipine 5 MG tablet 5 mg PO DAILY aspirin 81 MG tablet,delayed release (DR/EC) 81 mg PO DAILY allopurinol 100 mg tablet 100 mg PO DAILY Label Comments: TAKE ONE TABLET BY MOUTH EVERY DAY omeprazole 40 mg capsule,delayed release(DR/EC) 40 mg PO DAILY Label Comments: TAKE ONE CAPSULE BY MOUTH EVERY DAY ramipril 5 MG capsule 5 mg PO DAILY Held zolpidem [Ambien] 10 mg Tablet 10 mg PO QHS PRN (Reason: Sleep) Hold Instructions: Resume on 07/22/22. Would consider discussing Ambien with your primary care physician prior to resuming given that it can also contribute to dizziness Referrals / Follow Up: Jose Arita DO [Primary Care Provider] - Within 1 Week Disposition Disposition (needs filled in before D/C Order can be placed): Home, Self Care Charges/Coding Visit Charges OBSV E&M: 53513 Observation care discharge
--- NOTE | 2022-07-17 13:06 | CASEMGMT ---
Pt has been up independent in room and states no need concerns for discharge. Kaleb ELLIOTT CM
== END 2022-07-17 13:20 | disposition home or self-care (01) ==
LOC: ED 15:35 → PCU 07-17 07:08
PROVIDERS: Admitting Provider Family Medicine; Emergency Provider Emergency Medicine; PCP Family Medicine; Visit Provider Internal Medicine
DX: R42 Dizziness and giddiness (principal); U07.1 COVID-19; E78.00 Pure hypercholesterolemia, unspecified; K21.9 Gastro-esophageal reflux disease without esophagitis; I10 Essential (primary) hypertension; M10.9 Gout, unspecified; I69.328 Other speech and language deficits following cerebral infarction; Z79.82 Long term (current) use of aspirin; Z79.899 Other long term (current) drug therapy; I69.398 Other sequelae of cerebral infarction
CPT/HCPCS: 36415; 70450; 70496; 70498; 70551; 80048; 80053; 80076; 82728; 83615; 83735; 83880; 84145; 84484; 85025; 85379; 86140; 87070; 87205; 87449; 87633; 93005; 96360; 96361; 96372; 99218; 99285; J7030; Q9967; A4216; G0378

== ENCOUNTER 2023-04-18 13:03 | Emergency (ER) | payer OTHER, SELFPAY ==
[2023-04-18 13:04] VITALS: BP 153/82; PULSE 92; RESP 19; TEMP 36.6; O2SAT 97; BMI 29.5
--- NOTE | 2023-04-18 13:15 | EKG12_ITS ---
Test Reason : CP Blood Pressure : / mmHG Vent. Rate : 080 BPM Atrial Rate : 080 BPM P-R Int : 154 ms QRS Dur : 094 ms QT Int : 356 ms P-R-T Axes : 064 -35 068 degrees QTc Int : 410 ms Normal sinus rhythm Left axis deviation Minimal voltage criteria for LVH, may be normal variant ( R in aVL ) Abnormal ECG Confirmed by LACHO MURPHY, JOANN ([id number]), book editor ZE KEEN ([id number]) on 04/19/2023 1:29:56 PM Referred By: MERRITT Confirmed By:JOANN MONK MD
--- NOTE | 2023-04-18 13:16 | EDS_ITS ---
HPI History of Present Illness Chief Complaint: Chest Pain Detail of Chief Complaint: Atypical midsternal chest pain for last 3 to 4 days. Informant: patient Onset/Context/Timing Onset: Days Activity at onset: gradual Timing: Intermittent Quality: Positive for Dull Location: Substernal Current Severity: Mild Maximum Severity: Mild Worsened By: Nothing Relieved By: Nothing Associated Symptoms: Negative for Nausea, Vomiting, Diaphoresis, Dyspnea, Cough, Fever, Lightheadedness, Acid Reflux or Palpitations Narrative Narrative: 52-year-old male history of prior hypertensive CVA. Complaining of intermittent midsternal chest pain for the last 3 to 4 days. Not associated with exertion. No cardiac history but no prior cardiac work-up. No prior stress test or heart cath. He is never had a DVT or PE. About 8 weeks ago he did travel to [facility]. He denies pleuritic pain. No leg pain or swelling. No hemoptysis. No shortness of breath. Denies any significant exertional symptoms recently. Nons clear. Prior Similar Symptoms: No Recent Illness/Hospitalization: No CVD Risk Factors: Positive for Hypertension; Negative for Diabetes or Smoking PE Risk Factors: Positive for Recent Travel/Surgery; Negative for Recent Immobilization, Prior DVT or PE, Cancer or OCP + Smoking + >/=35 TAD Risk Factors: Negative for Marfan's Syndrome [facility] Medical History Chronic back pain CVA (cerebral vascular accident) Elevated blood pressure reading GERD (gastroesophageal reflux disease) Gout High cholesterol Hypertension Stroke/cerebrovascular accident Home Medications amlodipine 5 mg tablet 5 mg PO DAILY heart 10/31/19 [History Last Taken 07/16/22] aspirin 81 mg tablet,delayed release 81 mg PO DAILY heart 10/31/19 [History Last Taken 07/16/22] allopurinol 100 mg tablet 100 mg PO DAILY gout 07/16/22 [History Last Taken 07/16/22] omeprazole 40 mg capsule,delayed release 40 mg PO DAILY gerd 07/16/22 [History Last Taken 07/16/22] ramipril 5 mg capsule 5 mg PO DAILY bp 07/16/22 [History Last Taken 07/16/22] zolpidem 10 mg tablet (Ambien) 10 mg PO QHS PRN Sleep 07/16/22 [History Last Taken 2 Weeks Ago ~07/02/22] Allergy/AdvReac Type Severity Reaction Status Date / Time Penicillins Allergy Unknown Verified 07/16/22 10:49 Family History Mother Diabetes Hypertension Father Diabetes Hypertension Surgical History H/O laminectomy H/O lithotripsy Status post percutaneous transluminal angioplasty (LEATHER CURRIER) with stent placement Social History household members: spouse Smoking Status: Never smoker alcohol intake: current alcohol intake frequency: holidays/special occasions only substance use type: does not use ROS ROS ED ROS Narrative Atypical chest pain. Review of Systems ROS Unobtainable: Denies due to encephalopathy Constitutional Constitutional ED: Denies chills or fever(s) Eyes Eyes: Reports none ENT ENT ED: Denies ear pain Cardiovascular Cardiovascular: Reports as per HPI and chest pain; Denies palpitations or racing heartbeat Respiratory/Chest Respiratory/Chest: Denies cough or dyspnea Gastrointestinal Gastrointestinal: Denies abdominal pain Genitourinary Genitourinary ED: Denies dysuria or hematuria Musculoskeletal Musculoskeletal: Denies arthralgias, back pain or myalgias Integumentary Denies abscess Neurologic Neurologic: Denies headache(s) Psychiatric Psychiatric: Denies anxiety Endocrine Endocrinology: Denies cold intolerance Hematologic/Lymphatic Hematologic/Lymphatic: Denies easy bleeding Allergic/Immunologic Allergic/Immunologic ED: Denies mouth swelling EXAM Physical Exam Narrative Exam Narrative: Well-appearing 52-year-old male. Vital signs stable afebrile. Pulse ox 97% on room air no hypoxia. H EENT exam unremarkable. Neck nontender. No JVD. Lungs clear to auscultation bilaterally. Heart regular rhythm rate about 80 no murmur. Chest wall nontender. No reproducible chest wall pain. Abdomen soft nontender. Equal symmetrical radial pulses. 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 Normal dorsi plantarflexion. Calves are nontender without edema. Neurologically he is awake and alert. Answering questions and following commands. He does have slow deliberate speech from his prior stroke. Const Vital Signs: 04/18/23 13:04 04/18/23 13:07 04/18/23 13:20 Temperature 98 F Temperature Source Temporal Pulse Rate 92 Respiratory Rate 19 H Respiratory Pattern Normal Blood Pressure 153/82 H Blood Pressure Mean 105 Pulse Ox 97 97 Oxygen Delivery Method Room Air Room Air Positive well nourished and well developed; Negative for cachectic, contractures or unkempt General Appearance ED: well developed and NAD; Negative for unkempt, cachectic, contractures or pallor Nutritional Appearance: Negative for cachectic HEENT Reports moist mucous membranes; Denies dry mucous membranes normocephalic and atraumatic; Negative for trauma or tenderness Mouth ED: No dry mucous membranes Mouth: No dry mucous membranes Eyes PERRL and EOMs intact bilaterally General Eye ED: Negative for pale conjunctiva or scleral icterus Neck no lymphadenopathy, supple and no JVD General: Negative for tenderness Chest Wall inspection of chest normal and palpation of chest normal Chest: Negative for tenderness Resp normal respiratory effort and clear to auscultation bilaterally Effort and Inspection: Negative for respiratory distress Auscultation: Negative for rales, rhonchi or wheezes Cardio regular rate, regular rhythm, S1 normal heart sound, S2 normal heart sound and no murmurs Peripheral Pulses: pulses 2+ throughout GI normal to inspection, nondistended, normoactive bowel sounds, soft to palpation, non-tender, non-distended and no masses Back/Spine no CVA tenderness and no thoracic nor lumbar tenderness General Back: Negative for CVA tenderness Cervical Spine: Negative for cervical spine tenderness Extremity normal to inspection General Extremety ED: Negative for edema, pulses abnormal or tenderness General Extremity: Negative for edema or pulses abnormal Neuro oriented x3 and CN's II-XII intact bilaterally Sensorium / Orientation: awake, alert, oriented to place and oriented to time; Negative for confused, lethargic or stuporous Motor Exam: strength 5/5 throughout Psych mental status grossly normal Appearance: Negative for unkempt Attitude: No agitated Mood & Affect: Negative for depressed, anxious or tearful Skin no rashes or lesions noted and no wounds General Skin Exam: Negative for jaundice or pallor Rashes: No rashes noted Trauma: Negative for abrasion Heart Score History: Slightly/Non-Suspicious ECG: Normal Age: >45 - <65 years Risk Factors: 1 or 2 Risk Factors Troponin: </= Normal Limit Score: 2 MDM MDM MDM Narrative Medical decision making narrative: 52-year-old male history of hypertension and prior stroke. Presents with midsternal nonexertional chest pain. Non-smoker. Nondiabetic. No undergo cardiac work-up. I doubt this is a PE but he had did have recent travel about 8 weeks ago. D-dimer will be obtained also. Repeat exam patient doing well at 3:50 PM. He is comfortable being discharged home with outpatient stress testing. I spoke to cardiology on-call who will follow-up with patient when he calls this week. History & Record Review Discussion w/independent historian: Patient Lab Data Attestation: I reviewed the patient's lab results. Lab results narrative: CBC unremarkable. White count of 10. H&H of 15 and 44. Platelets 318. Chest x-ray unremarkable. Chemistries unremarkable. Gap is 6. Normal BUN and creatinine 1.2. Glucose 118. Troponin is normal at 8. D-dimer is normal at less than 0.27. Repeat 2-hour troponin is 9. Labs: Laboratory Results - last 24 hr 04/18/23 04/18/23 13:16 15:23 WBC 10.3 RBC 4.85 Hgb 15.9 Hct 44.7 MCV 92.2 MCH 32.8 H MCHC 35.6 RDW Std Deviation 40.0 RDW Coeff of Suzi 11.9 Plt Count 318 MPV 9.1 Immature Gran % (Auto) 0.300 Neut % (Auto) 69.6 Lymph % (Auto) 20.3 [place] % (Auto) 8.3 Eos % (Auto) 0.8 Baso % (Auto) 0.7 Absolute Neuts (auto) 7.2 Absolute Lymphs (auto) 2.09 Nucleated RBC % 0 D-Dimer Quant (PE/DVT) < 0.27 L Sodium 136 Potassium 3.5 Chloride 104 Carbon Dioxide 26.0 Anion Gap 6 BUN 18 Creatinine 1.24 Estim Creat Clear Calc 68.10 Est GFR (MDRD) Af Amer 78 Est GFR (MDRD) Non-Af 64 BUN/Creatinine Ratio 14.5 Glucose 118 H Calcium 8.8 Troponin I High Sens 8 9 Radiography Chest X-Ray - ED: 1 View, Read by ED Physician, Normal, Heart, Lungs, Mediastinum, Bony Structures, No Acute Disease and Chronic Changes Diagnostic Testing: Clinical Impression(s) from Imaging Studies Chest X-Ray 04/18/23 13:25 IMPRESSION: No active disease. Electronically Signed: Quique Leggett MD at 14:06 EDT , Chest x-ray, portable, single view, interpreted myself shows no acute abnormality. Normal cardiac silhouette mediastinum. Normal lung silva. Rhythm Strip Rhythm Strip: Sinus Rhythm Rate: 80 Ectopy: None EKG Initial EKG: Attestation: I personally reviewed and interpreted this EKG as follows: Interpretation: Sinus Rhythm and No Acute Injury Pattern Comments: Normal sinus rhythm rate of 80 no acute signs of PR or ischemia. Discharge Plan Triage Chief Complaint: Chest Pain ED Provider: Roberth Galdamez Dx/Rx/DC Orders Clinical Impression: Chest pain Instructions: ED Chest Pain, Uncertain Cause Prescriptions: No Action amlodipine 5 MG tablet 5 mg PO DAILY aspirin 81 MG tablet,delayed release (DR/EC) 81 mg PO DAILY allopurinol 100 mg tablet 100 mg PO DAILY Patient Comments: TAKE ONE TABLET BY MOUTH EVERY DAY omeprazole 40 mg capsule,delayed release(DR/EC) 40 mg PO DAILY Patient Comments: TAKE ONE CAPSULE BY MOUTH EVERY DAY zolpidem [Ambien] 10 mg Tablet 10 mg PO QHS PRN (Reason: Sleep) Hold Instructions: Resume on 07/22/22. Would consider discussing Ambien with your primary care physician prior to resuming given that it can also contribute to dizziness ramipril 5 MG capsule 5 mg PO DAILY Primary Care Provider: Jose Arita Referrals: Erick Marie MD [Med Staff - Active Staff] - As soon as possible Jose Arita DO [Primary Care Provider] - Activity Restrictions/Additional Instructions: Follow-up with Dr. Marie ED and outpatient stress testing this week. Return if feeling worse. Disposition Disposition: Home, Self Care
[2023-04-18 13:20] VITALS: O2SAT 97
[2023-04-18] MEDS: Aspirin 81 MG TAB.CHEW 324 MG PO (13:22)
[2023-04-18 13:25] LABS: Absolute Lymphocyte Count 2.09 X10^3/uL (0.83-4.51); Absolute Neutrophil Count 7.2 X10^3/uL (2.0-7.7); Basophil# 0.07 X10^3/uL; Basophil% 0.7 % (0-1); Eosinophil# 0.08 X10^3/uL; Eosinophils% 0.8 % (0-5); Hematocrit 44.7 % (40-54); Hemoglobin 15.9 g/dL (13.0-16.5); Lymphocyte # 2.09 X10^3/ul (0.83-4.51); Lymphocyte % 20.3 % (19-41); Mean Corp Hgb Conc 35.6 g/dL (32-36); Mean Corpuscular Hgb 32.8 pg (27.0-32.0); Mean Corpuscular Volume 92.2 fL (80-94); Mean Platelet Vol. 9.1 fl (6.2-12.0); Monocyte# 0.85 X10^3/uL; Monocyte% 8.3 % (0-10); NRBC Flagged by Analyzer 0 % (0-5); Neutrophil # 7.16 X10^3/uL (2.7-7.7); Neutrophil % 69.6 % (47-70); Platelet Count 318 K/mm3 (150-450); RBC Distribution Width CV 11.9 % (11.6-14.6); Red Blood Count 4.85 M/mm3 (4.6-6.2); White Blood Count 10.3 K/mm3 (4.4-11.0)
--- NOTE | 2023-04-18 13:25 | RAD_ITS ---
STUDY: X-RAY CHEST REASON FOR EXAM: Male, 52 years old. chest pain TECHNIQUE: Single AP portable view of the chest. COMPARISON: 04/26/2017 FINDINGS: The lungs are clear and expanded. Slightly elevated right hemidiaphragm which is unchanged. Normal size heart. Normal mediastinum and jelani. Normal visualized pulmonary arteries. Normal visualized aortic arch and descending thoracic aorta. Normal visualized thoracic spine. Normal visualized ribs, clavicles, and shoulders. There is no demonstrated abnormality of the visualized soft tissue structures of the upper abdomen. RAD/Chest 1 View (Portable) IMPRESSION: No active disease. Electronically Signed: Quique Leggett MD at 14:06 EDT ,
[2023-04-18 13:39] LABS: D-Dimer Quantitative (DVT/PE) < 0.27 FEU/ug/m (0.27-0.49)
[2023-04-18 13:41] LABS: Anion Gap 6 (5-15); BUN 18 mg/dL (7-18); BUN/Creat Ratio 14.5 RATIO (10-20); Calcium,Total 8.8 mg/dL (8.5-10.1); Chloride 104 mmol/L (98-107); Creatinine, Serum 1.24 mg/dL (0.70-1.30); EST Glomerular Filtration Rate 64 mL/min (>60); Est Glom Filt Rate - Afr Amer 78 mL/min (>60); Glucose 118 mg/dL (74-106); Potassium 3.5 mmol/L (3.5-5.1); Sodium Level 136 mmol/L (136-145); Troponin-I HS (w/2H Reflex) 8 pg/mL (3.0-78.0)
[2023-04-18 14:03] VITALS: RESP 16
[2023-04-18 15:03] VITALS: RESP 16
[2023-04-18 15:19] LABS: Reflex Troponin-HS? (from REC) Y
--- NOTE | 2023-04-18 15:26 | ED.RN ---
IV REMOVED PER PT REQUEST AND THE OK BY DR. BANG.
[2023-04-18 15:45] LABS: Troponin-I HS 9 pg/mL (3.0-78.0)
[2023-04-18 15:53] VITALS: RESP 16
== END 2023-04-18 15:53 | disposition home or self-care (01) ==
PROVIDERS: Emergency Provider Emergency Medicine; PCP Family Medicine; Visit Provider Emergency Medicine
DX: R07.9 Chest pain, unspecified (principal); I10 Essential (primary) hypertension; E78.00 Pure hypercholesterolemia, unspecified; I69.328 Other speech and language deficits following cerebral infarction; K21.9 Gastro-esophageal reflux disease without esophagitis; M10.9 Gout, unspecified; Z79.899 Other long term (current) drug therapy; Z79.82 Long term (current) use of aspirin
CPT/HCPCS: 71045; 80048; 84484; 85025; 85379; 93005; 99285

== ENCOUNTER 2023-04-22 20:33 | Observation (INO) | payer OTHER, SELFPAY ==
[2023-04-22] VITALS (8 sets, daily range): BP systolic 128–173; BP diastolic 86–104; PULSE 64–90; RESP 16–20; TEMP 36.4–36.8; O2SAT 95–99; BMI 28.6; BMI 28.9
--- NOTE | 2023-04-22 20:35 | EKG12_ITS ---
Test Reason : Dysrhythmia Blood Pressure : / mmHG Vent. Rate : 078 BPM Atrial Rate : 078 BPM P-R Int : 152 ms QRS Dur : 084 ms QT Int : 380 ms P-R-T Axes : 052 -27 045 degrees QTc Int : 433 ms Normal sinus rhythm Minimal voltage criteria for LVH, may be normal variant ( R in aVL ) Borderline ECG Confirmed by SUMEET MURPHY, CHELO ([id number]), magazine editor ANASTACIA SORENSON ([id number]) on 04/26/2023 8:27:48 AM Referred By: Farooq Confirmed By:SAMUEL FAY MD
--- NOTE | 2023-04-22 20:35 | CT_ITS ---
We are attempting to reach an attending provider to discuss findings. An addendum with communication details will be sent when the communication is complete. INDICATION: Neuro deficit, acute, stroke suspected EXAMINATION: CT BRAIN - CT Head or Brain W/O Contrast Injection TECHNIQUE: Multiple axial images were obtained of the head without intravenous contrast. A radiation dose optimization technique was used for this scan. IV Contrast dosage and agent: None. COMPARISON: 07/16/2022 FINDINGS: BRAIN PARENCHYMA: No intra- or extra-axial hemorrhage. No evidence of acute infarct. No intracranial mass or mass effect. Posterior fossa structures are unremarkable. CSF SPACES: Stable. No hydrocephalus. Basal cisterns are patent. CALVARIUM, SKULL BASE, PARANASAL SINUSES AND MASTOID AIR CELLS: Clear. No discrete lytic or blastic abnormalities. ORBITS: Both globes, extraocular muscles, optic nerves and retrobulbar fat appear unremarkable. CT/STROKE Brain/Head without Cont IMPRESSION: No acute intracranial findings. Electronically Signed: Nick Bardales MD at 20:51 EDT ,
--- NOTE | 2023-04-22 20:36 | CT_ITS ---
We are attempting to reach an attending provider to discuss findings. An addendum with communication details will be sent when the communication is complete. INDICATION: Neuro deficit, acute, stroke suspected, homonymous superior quadrantanopia, hypertension, history of prior CVA. EXAMINATION: CTA CAROTIDS AND BRAIN - CTA Head and Neck Stroke W/ Contrast (and W/O if performed) TECHNIQUE: Routine CTA of the head and neck was performed with post processing of the angiographic images for volumetric reconstructions. In addition, images were obtained of the [place] of [place]. Nascet criteria using the distal ICAs for comparison were used for evaluation of stenoses. 3D reconstructions were reviewed. A radiation dose optimization technique was used for this scan. IV Contrast dosage and agent: 100 cc [id number] COMPARISON: Noncontrast head CT same date FINDINGS: --NECK: AORTIC ARCH AND BRANCHES: Left vertebral artery origin obscured by artifact from dense contrast. Remaining vessel origins patent. RIGHT CCA: No occlusion, significant stenosis or dissection. RIGHT ICA: No occlusion, significant stenosis or dissection. LEFT CCA: No occlusion, significant stenosis or dissection. LEFT ICA: No occlusion, significant stenosis or dissection. RIGHT VERTEBRAL ARTERY: No occlusion, significant stenosis or dissection. LEFT VERTEBRAL ARTERY: No occlusion, significant stenosis or dissection. NECK SOFT TISSUES: Unremarkable. LUNG APICES: Clear. BONES: Degenerative changes. --HEAD: --Anterior circulation: ICAs: No significant stenosis at the intracranial/visualized segments. ACAs: No significant stenosis at the visualized segments. ACOM: Present. MCAs: No significant stenosis at the visualized segments. --Posterior circulation: PCOMs: Not seen. anesthesiology medical doctor: No significant stenosis at the visualized segments. BASILAR ARTERY: No significant stenosis. VERTEBRAL ARTERIES: No significant stenosis at the intradural/visualized segments. No evidence of intracranial aneurysm or vascular malformation. CT/STROKE CTA Head AND Neck W/Con IMPRESSION: No significant major vessel vaso-occlusive disease in the head or neck. Electronically Signed: Nick Bardales MD at 21:24 EDT ,
--- NOTE | 2023-04-22 20:50 | EDS_ITS ---
HPI History of Present Illness Chief Complaint: Stroke Alert Detail of Chief Complaint: Partial visual loss superior upper right visual field Informant: patient Onset/Context/Timing Onset: Today (1946) Context: Sudden Onset Timing: Continuous Quality and Location: Positive for - (Visual field cut, homonymous superior quadrantanopsia) Onset: 1946 Current Severity: Mild Maximum Severity: Mild Worsened by: Nothing Relieved by: Nothing Associated Symptoms Associated Symptoms: Negative for Headache, Nausea or Vomiting Narrative Narrative: Patient is 52-year-old male with history of left pontine stroke, hypertension, COVID who presents with visual field deficit that corresponds with a superior homonymous quadrantanopsia. Patient denies trouble with speech or swallowing. Patient [place] paresthesia, anesthesia medics. Patient has problems with balance. Prior similar symptoms: No Recent Illness/Hospitalization: No (Fall of last year for COVID) [facility] Medical History Chronic back pain CVA (cerebral vascular accident) Elevated blood pressure reading Essential hypertension GERD (gastroesophageal reflux disease) Gout Hyperlipidemia Stroke/cerebrovascular accident Home Medications amlodipine 5 mg tablet 5 mg PO DAILY heart 10/31/19 [History Last Taken 07/16/22] aspirin 81 mg tablet,delayed release 81 mg PO DAILY heart 10/31/19 [History Last Taken 07/16/22] allopurinol 100 mg tablet 100 mg PO DAILY gout 07/16/22 [History Last Taken 07/16/22] omeprazole 40 mg capsule,delayed release 40 mg PO DAILY gerd 07/16/22 [History Last Taken 07/16/22] ramipril 5 mg capsule 5 mg PO DAILY bp 07/16/22 [History Last Taken 07/16/22] zolpidem 10 mg tablet (Ambien) 10 mg PO QHS PRN Sleep 07/16/22 [History Last Taken 2 Weeks Ago ~07/02/22] Allergy/AdvReac Type Severity Reaction Status Date / Time Penicillins Allergy Unknown Verified 04/22/23 20:45 Family History Mother Diabetes Hypertension Father Diabetes Hypertension Other Status post percutaneous transluminal angioplasty (VICE PRESIDENT OF PROCUREMENT) with stent placement Surgical History H/O laminectomy H/O lithotripsy Status post percutaneous transluminal angioplasty (VICE PRESIDENT OF PROCUREMENT) with stent placement Social History household members: spouse Smoking Status: Never smoker alcohol intake: current alcohol intake frequency: holidays/special occasions only substance use type: does not use ROS ROS ED Constitutional Constitutional ED: Denies chills, fever(s), subjective, sweats or weakness Eyes Eyes: Reports blurry vision and change in vision; Denies diplopia ENT ENT ED: Denies ear pain, rhinorrhea or sore throat Cardiovascular Cardiovascular: Denies chest pain, palpitations, paroxysmal nocturnal dyspnea or racing heartbeat Respiratory/Chest Respiratory/Chest: Denies cough, dyspnea, dyspnea on exertion or paroxysmal nocturnal dyspnea Gastrointestinal Gastrointestinal: Denies abdominal pain, constipation, diarrhea, nausea or vomiting Genitourinary Genitourinary ED: Denies dysuria, hematuria or urinary frequency Musculoskeletal Musculoskeletal: Denies arthralgias, back pain, myalgias or neck pain Integumentary Denies abscess or rash Neurologic Neurologic: Denies headache(s), paresthesias or weakness Psychiatric Psychiatric: Denies anxiety or depression Endocrine Endocrinology: Denies polydipsia, polyphagia or polyuria Hematologic/Lymphatic Hematologic/Lymphatic: Denies easy bleeding or easy bruising Allergic/Immunologic Allergic/Immunologic ED: Denies mouth swelling or urticaria EXAM Physical Exam Const Vital Signs: 04/22/23 20:38 04/22/23 20:41 04/22/23 20:44 Temperature 97.6 F L 97.6 F L Temperature Source Temporal Temporal Pulse Rate 90 90 Respiratory Rate 16 16 Blood Pressure Blood Pressure Mean Pulse Ox 95 95 Oxygen Delivery Method Room Air 04/22/23 20:48 04/22/23 20:50 04/22/23 21:05 Temperature Temperature Source Pulse Rate 75 77 75 Respiratory Rate 18 20 H 20 H Blood Pressure 165/104 H 170/103 H 173/99 H Blood Pressure Mean 124 125 123 Pulse Ox 98 98 98 Oxygen Delivery Method 04/22/23 21:05 Temperature Temperature Source Pulse Rate 79 Respiratory Rate 20 H Blood Pressure 173/99 H Blood Pressure Mean 123 Pulse Ox 99 Oxygen Delivery Method Positive well nourished and well developed General Appearance ED: well developed and NAD HEENT Reports moist mucous membranes atraumatic and trauma Eyes PERRL and EOMs intact bilaterally Eyes Narrative: There is no nystagmus. Patient has findings consistent with a homonymous superior quadrantanopsia. General Eye ED: Negative for pale conjunctiva or scleral icterus Neck no lymphadenopathy, supple and no JVD Chest Wall inspection of chest normal Resp normal respiratory effort and clear to auscultation bilaterally Cardio no murmurs Rate: regular rate Rhythm: regular rhythm Heart Sounds: S1 normal and S2 normal GI normal to inspection, nondistended, normoactive bowel sounds, soft to palpation, non-tender and non-distended Extremity normal to inspection General Extremety ED: Negative for edema General Extremity: Negative for edema Neuro oriented x3, CN's II-XII intact bilaterally and no sensory deficits noted Neuro Narrative: Patient has slurred speech as baseline from prior left pontine stroke 5 to 5-1/2 years ago. Lucas Coma Scale: document GCS findings Spontaneous Obeys Commands Oriented 15 Sensorium / Orientation: alert Speech: Negative for speech normal Sensory Exam: No sensory level loss detected Motor Exam: strength 5/5 throughout Psych mental status grossly normal Skin no wounds Lesions: no lesions Rashes: no rashes NIHSS NIHSS Initial: 1a Level of Consciousness: 0 1b LOC Questions (Score 2 if aphasic/stupor): 0 1c LOC Commands (Only score 1st attempt): 0 2 Best Gaze (If aphasic, use reflexive mvmts.): 0 3 Visual: 1 4 Facial Palsy: 0 5 Motor Arm Right (UN = amputation/fusion): 0 5 Motor Arm Left: 0 6 Motor Leg Right: 0 6 Motor Leg Left: 0 7 Limb ataxia (Only + if out of proportion): 0 8 Sensory (Aphasia/stupor=0 or 1, coma=2): 0 9 Best Language: 0 10 Dysarthria (mute, coma=2, intubated=UN): 1 11 Extinction and Inattention (only scored if +): 0 Total Score: 2 MDM MDM MDM Narrative Medical decision making narrative: Patient presents with strokelike symptoms started 1945 and patient specifically has a superior homonymous quadrantanopsia. His slurred speech is from prior stroke. CT was read by Dr. Bardales and I was informed that the CT without contrast was unremarkable. The hospitalist is presently seen patient. Lab Data Labs: Laboratory Results - last 24 hr 04/22/23 20:40 WBC 10.5 RBC 5.08 Hgb 16.3 Hct 48.2 MCV 94.9 H MCH 32.1 H MCHC 33.8 D RDW Std Deviation 40.7 RDW Coeff of Suzi 11.8 Plt Count 307 MPV 9.0 Immature Gran % (Auto) 0.400 Neut % (Auto) 61.6 Lymph % (Auto) 24.2 [place] % (Auto) 10.0 Eos % (Auto) 3.0 Baso % (Auto) 0.8 Absolute Neuts (auto) 6.5 Absolute Lymphs (auto) 2.55 Nucleated RBC % 0 PT 12.2 INR 0.9 APTT 27.2 Radiography Diagnostic Testing: Clinical Impression(s) from Imaging Studies Brain CT 04/22/23 20:35 IMPRESSION: No acute intracranial findings. Electronically Signed: Nick Bardales MD at 20:51 EDT , ADDENDUM: 04/22/232100 IMPRESSION: No acute intracranial findings. N.B. : The above Results were Read Back by Nick Bardales MD to Lucio Trivedi MD, and understanding confirmed on 04/22/2023 20:54:50 (ET). Electronically Signed: Nick Bardales MD at 20:51 EDT , EKG Initial EKG: Attestation: I personally reviewed and interpreted this EKG as follows: Interpretation: Sinus Rhythm (Rate is 78. LA interval is 152 ms. Cures duration 84 ms. QT durations 180 ms. [place] is normal. Computer is reading minimal voltage criteria for LVH versus normal variant.) Management Discussion w/another healthcare provider: Hospitalist (Dr. Abad), Surgery Teacher ([facility] neurologist) and Radiologist Treatment and Re-Evaluation Narrative: Patient was evaluated by [facility] neurologist Dr. Magana. Since patient's symptoms resolved he is calling this a TIA. We are allowing for permissive hypertension. Does not at this time recommend Plavix. Recommends Plavix if MRI shows abnormality. Also does not recommend lowering his blood pressure at this point until MRI has been performed. Discharge Plan Dx/Rx/DC Orders Clinical Impression: Right homonymous superior quadrantanopia, History of CVA (cerebrovascular accident), Essential hypertension, Hyperlipidemia Disposition Disposition: Acute Care Hospital [facility]
[2023-04-22 20:51] LABS: Absolute Lymphocyte Count 2.55 X10^3/uL (0.83-4.51); Absolute Neutrophil Count 6.5 X10^3/uL (2.0-7.7); Basophil# 0.08 X10^3/uL; Basophil% 0.8 % (0-1); Eosinophil# 0.32 X10^3/uL; Hematocrit 48.2 % (40-54); Hemoglobin 16.3 g/dL (13.0-16.5); Lymphocyte # 2.55 X10^3/ul (0.83-4.51); Lymphocyte % 24.2 % (19-41); Mean Corp Hgb Conc 33.8 g/dL (32-36); Mean Corpuscular Hgb 32.1 pg (27.0-32.0); Mean Corpuscular Volume 94.9 fL (80-94); Monocyte# 1.05 X10^3/uL; NRBC Flagged by Analyzer 0 % (0-5); Neutrophil % 61.6 % (47-70); Platelet Count 307 K/mm3 (150-450); RBC Distribution Width CV 11.8 % (11.6-14.6); RBC Distribution Width SD 40.7 fl (35.1-43.9); Red Blood Count 5.08 M/mm3 (4.6-6.2); White Blood Count 10.5 K/mm3 (4.4-11.0)
[2023-04-22 21:00] LABS: International Normalized Ratio 0.9; Prothrombin Time (Protime)PT. 12.2 SECONDS (11.7-14.9)
[2023-04-22 21:01] LABS: Partial Thromboplast Time 27.2 Seconds (24.1-36.2)
--- NOTE | 2023-04-22 21:16 | PCM.HP.STD ---
HPI - General General Date of Admission: 04/22/23 Date of Service: 04/22/23 Chief Complaint: R upper outer vision quadrant blurry. HPI Narrative The patient is a 52 y/o M w/ PMHx: Hx Pontine CVA s/p vertebral artery PCI appoximately 5 1/2 years prior with residual speech difficulties and mild dizziness associated, HTN, HLD, Gout who presents to the [facility] ED on 04/22/23 with history of onset at 7:45 pm on day of presentation while watching TV onset sudden right upper outer quadrant blurry vision with no associated headache, pain to the eye or sensation of a curtain coming down which persisted prompting ED evaluation. He notes that his BP has been appropriate recently. He had been in the ED several days prior to this with atypical chest pain with normal BP at that time with planned outpatient stress testing that has already been arranged and denies any further chest pain since. Patient takes a daily baby aspirin and is consistent in taking this as well as his BP medications. In the ED NIHSS 1 for his visit deficits and did improve and eventually completely resolved upon his evaluation per Stroke Alert [facility] evaluation. He does have as noted prior chronic speech deficits and dizziness from his prior stroke that are unchanged currently. Workup in the ED included T97.6, heart rate 90, initial BP 165/104, respiratory rate 16, 95% on room air with most recent vital signs BP 173/99, respiratory rate 18, 99% on room air, CBC with WC 10.5, hemoglobin 16.3, platelets 307 without marked shift, unremarkable coags, BMP with BUN/creatinine 18/1.35 otherwise unremarkable, troponin 8, CT the brain with no acute intracranial findings, CTA head and neck with no significant major vessel vaso-occlusive disease in the head or the neck however [facility] stroke neurologist did discuss some concerns about mild appearing R sided carotid disease and recommended this further be addressed given his presentation, EKG with SR without acute evidence of ischemia. [facility] Medical History Chronic back pain CVA (cerebral vascular accident) Elevated blood pressure reading Essential hypertension GERD (gastroesophageal reflux disease) Gout Hyperlipidemia Stroke/cerebrovascular accident Home Medications amlodipine 5 mg tablet 5 mg PO DAILY heart 10/31/19 [History Last Taken 07/16/22] aspirin 81 mg tablet,delayed release 81 mg PO DAILY heart 10/31/19 [History Last Taken 07/16/22] allopurinol 100 mg tablet 100 mg PO DAILY gout 07/16/22 [History Last Taken 07/16/22] omeprazole 40 mg capsule,delayed release 40 mg PO DAILY gerd 07/16/22 [History Last Taken 07/16/22] ramipril 5 mg capsule 10 mg PO DAILY bp 07/16/22 [History Last Taken 07/16/22] zolpidem 10 mg tablet (Ambien) 10 mg PO QHS PRN Sleep 07/16/22 [History Last Taken 2 Weeks Ago ~07/02/22] gabapentin 100 mg capsule 200 mg PO QHS 04/22/23 [History Last Taken Unknown] meloxicam 15 mg tablet 15 mg PO DAILY 04/22/23 [History Last Taken Unknown] vitamin B complex (Vitamins B Complex capsule) 1 cap PO DAILY 04/22/23 [History Last Taken Unknown] Allergy/AdvReac Type Severity Reaction Status Date / Time Penicillins Allergy Unknown Verified 04/22/23 20:45 Family History Mother Diabetes Hypertension Father Diabetes Hypertension Other Status post percutaneous transluminal angioplasty (DATA LEAD) with stent placement Surgical History H/O laminectomy H/O lithotripsy Status post percutaneous transluminal angioplasty (DATA LEAD) with stent placement Social History household members: spouse Smoking Status: Never smoker alcohol intake: current alcohol intake frequency: holidays/special occasions only substance use type: does not use ROS ROS Narrative Admission Review of Systems: CONSTITUTIONAL: No weight loss, fever, chills, + weakness or fatigue. HEENT: + Right upper outer field of vision blurriness. Eyes: No visual loss, double vision or yellow sclerae. Ears, Nose, Throat: No hearing loss, sneezing, congestion, runny nose or sore throat. SKIN: No rash or itching, lesions, wounds. CARDIOVASCULAR: No chest pain, chest pressure or chest discomfort, palpitations, edema, orthopnea, syncopal events. RESPIRATORY: No shortness of breath, cough or sputum, wheezing, hemoptysis. GASTROINTESTINAL: No anorexia, nausea, vomiting or diarrhea, abdominal pain, melena, BRBPR. GENITOURINARY: No dysuria, frequency, urgency or retention. NEUROLOGICAL: + Right upper outer field of vision blurriness, chronic dysarthria, chronic dizziness. No headache, syncope, paralysis, ataxia, numbness or tingling in the extremities, focal weakness, change in bowel or bladder control, seizure. MUSCULOSKELETAL: No muscle, back pain, joint pain or stiffness. HEMATOLOGIC: No anemia, bleeding or bruising. LYMPHATICS: No enlarged nodes. No history of splenectomy. PSYCHIATRIC: No history of depression or anxiety. ENDOCRINOLOGIC: No reports of sweating, cold or heat intolerance. No polyuria or polydipsia. ALLERGIES: No history of asthma, hives, eczema or rhinitis. Vital Signs Vital Signs Vital Signs: 04/22/23 20:38 04/22/23 20:41 04/22/23 20:44 Temperature 97.6 F L 97.6 F L Temperature Source Temporal Temporal Pulse Rate 90 90 Respiratory Rate 16 16 Blood Pressure Blood Pressure Mean Pulse Ox 95 95 Oxygen Delivery Method Room Air 04/22/23 20:48 04/22/23 20:50 04/22/23 21:05 Temperature Temperature Source Pulse Rate 75 77 75 Respiratory Rate 18 20 H 20 H Blood Pressure 165/104 H 170/103 H 173/99 H Blood Pressure Mean 124 125 123 Pulse Ox 98 98 98 Oxygen Delivery Method 04/22/23 21:05 04/22/23 21:13 Temperature 97.6 F L Temperature Source Temporal Pulse Rate 79 75 Respiratory Rate 20 H 18 Blood Pressure 173/99 H 173/99 H Blood Pressure Mean 123 123 Pulse Ox 99 99 Oxygen Delivery Method Weight Weight: 196 lb Body Mass Index (BMI) 28.9 Physical Exam Narrative Physical Examination: General: Awake, alert, oriented x 3 and cooperative, seated upright in the ED bed in no apparent distress. Skin: Normal color, normal turgor, no icterus, no cyanosis. HEENT: AT/NC, EOMI, PERRLA, mildly dry MM, no carotid bruits or JVD noted, right upper outer quadrant field deficit/blurry vision improved, normalized. Lungs: CTA bilaterally, moderate effort, mild decrease BL bases, no rales, ronchi or wheezing. Heart: Regular rate and rhythm; no gallop, rub audible. Abdomen: Soft, NTTP, ND, normal BS, no HSM. Extremities: No cyanosis, clubbing, or edema. Neurological: Patient awake, alert, oriented as noted, cognitive function intact; pupils equally reactive to light and accommodation, cranial nerves grossly normal with as noted right upper outer quadrant field deficit/blurry vision improved/normalized, moving all 4 extremities, no focal deficits, strength preserved, equivocal Babinski, finger-nose and [id number] appropriate, sensation intact, chronic dysarthria present and unchanged. Psychiatric: Affect appears mildly anxious but this is to be expected given his presentation otherwise normal, no acute evidence of depressive feelings. Results Lab / Micro Data 04/22/23 20:40 04/22/23 20:40 Labs: Laboratory Results - last 24 hr 04/22/23 20:40: WBC 10.5, RBC 5.08, Hgb 16.3, Hct 48.2, MCV 94.9 H, MCH 32.1 H, MCHC 33.8 D, RDW Std Deviation 40.7, RDW Coeff of Suzi 11.8, Plt Count 307, MPV 9.0, Immature Gran % (Auto) 0.400, Neut % (Auto) 61.6, Lymph % (Auto) 24.2, Saline % (Auto) 10.0, Eos % (Auto) 3.0, Baso % (Auto) 0.8, Absolute Neuts (auto) 6.5, Absolute Lymphs (auto) 2.55, Nucleated RBC % 0, PT 12.2, INR 0.9, APTT 27.[address] 04/22/23 20:35 IMPRESSION: No acute intracranial findings. Electronically Signed: Nick Bardales MD at 20:51 EDT , ADDENDUM: 04/22/232100 IMPRESSION: No acute intracranial findings. N.B. : The above Results were Read Back by Nick Bardales MD to Lucio Trivedi MD, and understanding confirmed on 04/22/2023 20:54:50 (ET). Electronically Signed: Nick Bardales MD at 20:51 EDT Reading Location ID and State: [facility] / [place] Tel , Service support , Assessment & Plan Assessment/Plan (1) TIA (transient ischemic attack): PLAN: Plan The patient is a 52 y/o M w/ PMHx: Hx Pontine CVA s/p vertebral artery PCI appoximately 5 1/2 years prior with residual speech difficulties and mild dizziness associated, HTN, HLD, Gout who presents to the [facility] ED on 04/22/23 with history of onset at 7:45 pm on day of presentation while watching TV onset sudden right upper outer quadrant blurry vision with no associated headache, pain to the eye or sensation of a curtain coming down which persisted prompting ED evaluation. #1. Partial vision blurriness superior upper right visual field consistent with homonymous superior quadrantanopsia concerning for TIA with History of prior Pontine CVA s/p vertebral artery PCI: Will admit to PCU, will obtain MRI Brain, patient has already had ECHO evaluation with bubble study prior thus will defer repeat, PT/OT/Speech/Nutrition evaluation per protocol. Will allow permissive HTN per discussion with Neurologist, maintain on asa only unless MRI demonstrates acute findings per discussion with Neurologist, will add statin w/ AM FLP, fall precautions. Mag, TSH, FLP, HgbA1c requested. Maintain on fall and aspiration precautions. Given stroke Neurologist concern for the R carotid despite eventual unremarkable CTA read will obtain carotid US. Patient does note that if there are findings he would plan to follow-up outpatient with Dr. Reyna. Once work-up obtained low threshold to obtain Neurology consultation. #2. Hypertension: We will maintain permissive hypertension per neurology recommendation with as needed agents per stroke protocol. Add back medications once MRI has been obtained if unremarkable. #3. Hyperlipidemia: Clarifying but per current list patient is not listed on statin therapy, FLP in a.m., statin added in the interim especially given history. #4. GERD: We will maintain on home PPI. #5. Gout: We will continue patient on allopurinol regimen. #6. Chronic insomnia: Patient chronically uses nightly as needed zolpidem however given his presentation and need for accurate NIH stroke scale assessments will hold this regimen temporarily. #7. DVT prophylaxis: Lovenox. Charges/Coding Visit Charges Inpatient E&M: 18522 Init Hosp L2
[2023-04-22 21:17] LABS: Anion Gap 7 (5-15); BUN 18 mg/dL (7-18); BUN/Creat Ratio 13.3 RATIO (10-20); Calcium,Total 9.6 mg/dL (8.5-10.1); Chloride 103 mmol/L (98-107); Creatinine, Serum 1.35 mg/dL (0.70-1.30); EST Glomerular Filtration Rate 58 mL/min (>60); Est Glom Filt Rate - Afr Amer 71 mL/min (>60); Estimated Creatinine Clearance 62.55 ml/min; Glucose 94 mg/dL (74-106); Potassium 4.3 mmol/L (3.5-5.1); Sodium Level 136 mmol/L (136-145); Troponin-I HS 8 pg/mL (3.0-78.0)
--- NOTE | 2023-04-22 21:28 | RAD_ITS ---
INDICATION: Neuro deficit, acute, stroke suspected EXAMINATION/TECHNIQUE: X-RAY - portable AP upright chest x-ray COMPARISON: 04/18/2023 FINDINGS: LINES/DEVICES: None. LUNGS: No consolidation, edema or effusion. No pneumothorax. MEDIASTINUM AND CARDIOVASCULAR STRUCTURES: Cardiac silhouette not enlarged. Central airways and mediastinal contour are unremarkable. BONES AND SOFT TISSUES: Unremarkable. RAD/Chest 1 View IMPRESSION: No radiographic evidence of acute cardiopulmonary disease. Electronically Signed: Nick Bardales MD at 21:59 EDT ,
[2023-04-22 21:34] LABS: Magnesium 1.9 mg/dL (1.6-2.6)
[2023-04-22] MEDS: 0.9% Normal Saline 1,000 ML 100 ML IV (23:06)
[2023-04-22] MEDS: MELATONIN 3 MG TABLET PO (23:35)
[2023-04-23 02:15] VITALS: BP 133/93; PULSE 56; RESP 16; TEMP 36.6; O2SAT 99
[2023-04-23 05:00] VITALS: BMI 28.6
--- NOTE | 2023-04-23 05:55 | CDU_ITS ---
Reason For Study: CVA Rt. Velocities/BP Lt. Velocities/BP Prox CCA 77.8/15.4 cm/sec. Prox CCA 99.2/25.6 cm/sec. Mid CCA 81.5/16.3 cm/sec. Mid CCA 97.1/23.4 cm/sec. Dist CCA 73/15.4 cm/sec. Dist CCA 93.8/23.4 cm/sec. Prox ICA 35.2/10.7 cm/sec. Prox ICA 54.2/14.6 cm/sec. Mid ICA 36.6/12.8 cm/sec. Mid ICA 42.1/16.8 cm/sec. Dist ICA 50.9/22.1 cm/sec. Dist ICA 56.4/22.3 cm/sec. Rt. ICA/CCA = 0.65. Lt. ICA/CCA = 0.48. Prox ECA 79.6/13.5 cm/sec. Prox ECA 87.2/16.8 cm/sec. Rt. Vert. 42.1/16 cm/sec. Lt. Vert. prox, 122.9/37.1 cm/sec. Lt. Vert. mid, 42.1/12.4 cm/sec. Right Extracranial There is homogeneous, smooth atherosclerotic plaque noted in the right common carotid artery. There is heterogeneous, irregular atherosclerotic plaque noted in the right internal carotid artery. There is intimal thickening but no significant atherosclerotic plaque noted in the right external carotid artery. Antegrade flow is noted in the right vertebral artery. Left Extracranial There is homogeneous, smooth atherosclerotic plaque noted in the left common carotid artery. There is heterogeneous, irregular atherosclerotic plaque noted in the left internal carotid artery. There is intimal thickening but no significant atherosclerotic plaque noted in the left external carotid artery. Antegrade flow is noted in the left vertebral artery. Stent noted in the proximal vertebral artery. VL/Carotid Duplex Ultrasound Interpretation Summary irregular plaque at the proximal right internal carotid artery with less than 5 0% stenosis Less than 50% stenosis right external carotid artery Patent and antegrade right vertebral Minimal irregular plaque at the proximal left internal carotid artery with less than 50% stenosis Less than 50% stenosis left external carotid artery Patent, proximal left vertebral artery stent. Velocity within the left proximal vertebral artery within the area that is stented is 122.9 cm second peak systolic flow. Aliasing is seen within this area possibly consistent with greater than 50% stenosis.. Velocity within the m ore distal left vertebral artery is 40 cm/s which is similar to the right vertebral. Consider C TA if symptoms warrant. Ordering Physician: Renetta Abad Referring Physician: Jose Arita Performed By: Sunshine Perez RVT
[2023-04-23 05:59] VITALS: BMI 28.6
[2023-04-23 06:00] VITALS: BP 148/98; PULSE 62; RESP 16; TEMP 36.7; O2SAT 96
[2023-04-23 06:15] LABS: Absolute Lymphocyte Count 1.55 X10^3/uL (0.83-4.51); Absolute Neutrophil Count 4.3 X10^3/uL (2.0-7.7); Basophil# 0.07 X10^3/uL; Eosinophil# 0.23 X10^3/uL; Eosinophils% 3.4 % (0-5); Hematocrit 45.8 % (40-54); Hemoglobin 15.4 g/dL (13.0-16.5); Lymphocyte # 1.55 X10^3/ul (0.83-4.51); Lymphocyte % 22.6 % (19-41); Mean Corp Hgb Conc 33.6 g/dL (32-36); Mean Platelet Vol. 9.4 fl (6.2-12.0); Monocyte# 0.67 X10^3/uL; Monocyte% 9.8 % (0-10); NRBC Flagged by Analyzer 0 % (0-5); Neutrophil # 4.32 X10^3/uL (2.7-7.7); Neutrophil % 62.9 % (47-70); Platelet Count 277 K/mm3 (150-450); RBC Distribution Width CV 11.9 % (11.6-14.6); RBC Distribution Width SD 40.7 fl (35.1-43.9); Red Blood Count 4.82 M/mm3 (4.6-6.2); White Blood Count 6.9 K/mm3 (4.4-11.0)
[2023-04-23 06:53] LABS: ALB/GLOB Ratio 1.1 RATIO (0.9-2.4); AST(SGOT) 16 U/L (15-37); Alanine Aminotransfer ALT/SGPT 35 U/L (16-61); Albumin, Serum 3.3 g/dL (3.2-5.0); Alkaline Phosphatase 78 U/L (45-117); Anion Gap 5 (5-15); BUN 17 mg/dL (7-18); BUN/Creat Ratio 14.9 RATIO (10-20); Calcium,Total 8.6 mg/dL (8.5-10.1); Chloride 107 mmol/L (98-107); Cholesterol 204 mg/dL (200); Creatinine, Serum 1.14 mg/dL (0.70-1.30); EST Glomerular Filtration Rate 71 mL/min (>60); Est Glom Filt Rate - Afr Amer 86 mL/min (>60); Estimated Creatinine Clearance 74.08 ml/min; Globulin 3.1 g/dL (2.2-4.2); Glucose 106 mg/dL (74-106); High Density Lipoprotein 68 mg/dL; Potassium 4.2 mmol/L (3.5-5.1); Protein, Total 6.4 g/dL (6.4-8.2); Sodium Level 139 mmol/L (136-145); Thyroid Stim Hormone (TSH) 1.26 uIU/mL (0.358-3.74); Triglycerides 124 mg/dL; Very Low Density Lipoprotein 25 mg/dL (5-40)
[2023-04-23 07:54] VITALS: O2SAT 96
[2023-04-23 08:22] LABS: Hemoglobin A1c 5.5 % (3.8-5.6)
[2023-04-23 09:59] VITALS: BP 156/93; PULSE 70; RESP 16; TEMP 36; O2SAT 98
--- NOTE | 2023-04-23 10:15 | MRI_ITS ---
EXAM: MR HEAD WITHOUT INTRAVENOUS CONTRAST CLINICAL INDICATION: CVA, h/o prior strokes, c/o blurry vision R eye TECHNIQUE: Multiplanar and multisequence MR images of the brain were obtained without intravenous contrast. COMPARISON: CT brain 04/22/2023, MR Head dated 07/16/2022 FINDINGS: BRAIN AND EXTRA-AXIAL SPACES: Normal. No intra- or extra-axial hemorrhage. No evidence of acute infarct. No intracranial mass or mass effect. There is preservation of the beal/white matter interface. Posterior fossa structures are unremarkable. Ventricles are appropriate for age. No hydrocephalus. Basal cisterns are patent. SELLA: Normal. Normal sella turcica, pituitary gland, infundibular stalk, optic chiasm and hypothalamus. AUDITORY SYSTEM: Normal. The internal auditory canals are patent. BONES/JOINTS: Intact calvarium. SINUSES: Unremarkable as visualized. Clear. MASTOID AIR CELLS: Unremarkable as visualized. Clear. ORBITS: Unremarkable as visualized. Both globes, extraocular muscles, optic nerves and retrobulbar fat appear unremarkable. VASCULATURE: Unremarkable as visualized. Normal flow voids in the major intracranial circulation. MRI/Brain without Contrast IMPRESSION: No acute intracranial abnormality. No interval change. Electronically Signed: Adolfo Martinez MD at 13:07 EDT ,
[2023-04-23] MEDS: Allopurinol 100 MG Tablet PO (11:58)
[2023-04-23] MEDS: Aspirin E.C. 81 MG Tablet PO (11:58)
[2023-04-23] MEDS: Pantoprazole Sodium 40 MG Tablet PO (11:58)
[2023-04-23 13:00] VITALS: BMI 28.6
--- NOTE | 2023-04-23 13:28 | DS.PCM_ITS ---
Providers Date of Admission: 04/22/23 Date of Discharge: 04/23/23 Primary Care Physician: Dr. Jose Arita DO Reason For Visit: TIA Diagnosis Discharge Diagnosis (1) Blurred vision, right eye: Status: Acute Code(s): H53.8 - Other visual disturbances Medications at Discharge Home Medications amlodipine 5 mg tablet 5 mg PO DAILY heart 10/31/19 aspirin 81 mg tablet,delayed release 81 mg PO DAILY heart 10/31/19 allopurinol 100 mg tablet 100 mg PO DAILY gout 07/16/22 omeprazole 40 mg capsule,delayed release 40 mg PO DAILY gerd 07/16/22 ramipril 5 mg capsule 10 mg PO DAILY bp 07/16/22 zolpidem 10 mg tablet (Ambien) 10 mg PO QHS PRN Sleep 07/16/22 gabapentin 100 mg capsule 200 mg PO QHS PRN nerve pain 04/22/23 vitamin B complex (Vitamins B Complex capsule) 1 cap PO DAILY 04/22/23 Hospital Course Procedures EKG and - (Carotid duplex/MRI/CTA head and neck/CT brain) Summary of Care Provided Minutes Spent on Discharge: 25 Hospital Course: 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 It started at 7:45 PM on the day of presentation while watching TV and was of sudden onset. He had no associated symptoms but with his history and symptoms he elected to come the emergency department. He reported that his blood pressures have been normal recently and he has been compliant with his aspirin. NIH on presentation was 1 for his visual field abnormality but resolved prior to his evaluation by [facility] stroke team. He does have chronic speech deficits and dizziness from previous stroke that are unchanged and has stenting of the vertebral artery related to his previous stroke. In the emergency department his vital signs were as follows T97.6, heart rate 90, initial BP 165/104, respiratory rate 16, 95% on room air with most recent vital signs BP 173/99, respiratory rate 18, and oxygen saturation was 99% on room air. His CBC was unremarkable. His chemistry panel was overall unremarkable. Troponin was 8. CT of the brain was unremarkable for any acute findings. CTA of the head and neck showed no significant major vessel occlusions or stenosis however the [facility] stroke neurologist did look at the images and was concerned about his right carotid artery and recommended further ultrasound. EKG showed normal sinus rhythm without any acute ischemia. Stroke neurology recommended admission for stroke/TIA work-up. He was admitted to the medical floor and maintained on his home aspirin, started on a statin, an MRI was ordered. Echocardiogram was deferred due to previous imaging showing no PFO. His carotid duplex showed irregular plaque in the proximal right internal carotid artery with less than 50% stenosis and patent and antegrade flow in the right vertebral artery, minimal irregular plaque in the proximal left internal carotid artery with less than 50% stenosis and a patent proximal left vertebral artery stent with velocity in the stented area of 122.9 cm/s and peak systolic flow and aliasing was noted in this area that could potentially be consistent with greater than 50% stenosis. The velocity within the more distal left vertebral artery was 40 cm/s which was similar to the right vertebral artery. I discussed the case with vascular surgery and they felt with this finding in conjunction with a normal CTA but no concern that needed to be had with regards to these findings. He thought that maybe the stent was causing these abnormalities and the patient confirmed that he had a recent CT angiogram that was normal about 1 year ago. MRI of the brain was unremarkable for any acute findings. The patient remained asymptomatic throughout his hospital course. His antihyperte nsives were started at discharge. Hgb A1c 5.5%. Of note, his total cholesterol was 204 with LDL of 111 and HDL of 68. I offered to write for a statin but he noted he is already seen the results and discussed this with his primary care physician he was starting a medication so I will defer to his primary care physician to write for these. He was asked to follow-up with his primary care physician within the next month. He was able to be discharged home in stable condition on 04/23/2023 without any restrictions. Discharge diagnosis: Right upper outer quadrant vision abnormality with blurriness History of pontine stroke status post stent to vertebral artery Residual dysarthria Chronic mild dizziness related previous stroke Hypertension Hyperlipidemia Gout Physical Exam Const alert, oriented x3, no apparent distress, average body habitus, no limitations, healthy appearing and well nourished Constitutional Narrative: Middle-aged white male, lying in bed, appears comfortable, at bedside, nontoxic, very pleasant General Appearance: cooperative, comfortable, well kempt and well developed Exam Limitations: no limitations HEENT normocephalic, head/scalp atraumatic and hearing grossly normal bilaterally Resp normal respiratory effort, no retractions, no use of accessory muscles and clear to auscultation bilaterally Auscultation: Negative for rales, rhonchi or wheezes Cardio regular rate, regular rhythm, S1 normal heart sound, S2 normal heart sound, no murmurs, no rub, no gallops and no clicks GI normal to inspection, nondistended, normoactive bowel sounds and soft to pa lpation Extremity no clubbing, cyanosis or edema Extremity Narrative: Pedal pulses are 2+ Neuro moves all extremities and no focal motor deficits Neuro Narrative: Speech deficits from previous stroke but no focal deficits noted and patient moves all extremities and moves independently in the bed Speech: Negative for speech normal Psych affect normal Psych Narrative: Very pleasant, interacts appropriately Weight / BMI Weight Weight: 88 kg Body Mass Index (BMI) 28.6 ABG / Lab / Microbiology Data 04/23/23 05:34 04/23/23 05:34 Laboratory: Laboratory Results - last 24 hr 04/22/23 20:40: WBC 10.5, RBC 5.08, Hgb 16.3, Hct 48.2, MCV 94.9 H, MCH 32.1 H, MCHC 33.8 D, RDW Std Deviation 40.7, RDW Coeff of Suzi 11.8, Plt Count 307, MPV 9.0, Immature Gran % (Auto) 0.400, Neut % (Auto) 61.6, Lymph % (Auto) 24.2, Winkler % (Auto) 10.0, Eos % (Auto) 3.0, Baso % (Auto) 0.8, Absolute Neuts (auto) 6.5, Absolute Lymphs (auto) 2.55, Nucleated RBC % 0, PT 12.2, INR 0.9, APTT 27.2, Sodium 136, Potassium 4.3, Chloride 103, Carbon Dioxide 26.0, Anion Gap 7, BUN 18, Creatinine 1.35 H, Estim Creat Clear Calc 62.55, Est GFR (MDRD) Af Amer 71, Est GFR (MDRD) Non-Af 58 L, BUN/Creatinine Ratio 13.3, Glucose 94, Calcium 9.6, Magnesium 1.9, Troponin I High Sens 8 08/11/23 05:34: WBC 6.9, RBC 4.82, Hgb 15.4, Hct 45.8, MCV 95.0 H, MCH 32.0, MCH C 33.6, RDW Std Deviation 40.7, RDW Coeff of Suzi 11.9, Plt Count 277, MPV 9.4, Immature Gran % (Auto) 0.300, Neut % (Auto) 62.9, Lymph % (Auto) 22.6, Winkler % (Auto) 9.8, Eos % (Auto) 3.4, Baso % (Auto) 1.0, Absolute Neuts (auto) 4.3, Absolute Lymphs (auto) 1.55, Nucleated RBC % 0, Sodium 139, Potassium 4.2, Chloride 107, Carbon Dioxide 27.0, Anion Gap 5, BUN 17, Creatinine 1.14, Estim Creat Clear Calc 74.08, Est GFR (MDRD) Af Amer 86, Est GFR (MDRD) Non-Af 71, BUN/Creatinine Ratio 14.9, Glucose 106, Hemoglobin A1c 5.5, Calcium 8.6, Total Bilirubin 0.50, AST 16, ALT 35, Alkaline Phosphatase 78, Total Protein 6.4, Albumin 3.3, Globulin 3.1, Albumin/Globulin Ratio 1.1, Triglycerides 124, Cholesterol 204 H, LDL Cholesterol 111, VLDL Cholesterol 25, HDL Cholesterol 68, TSH 1.26 Radiography Diagnostic Testing: Radiology Impression Brain CT 04/22/23 20:35 IMPRESSION: No acute intracranial findings. Electronically Signed: Nick Bardales MD at 20:51 EDT Reading Location ID and State: [facility] / [place] Tel , Service support , ADDENDUM: 04/22/232100 IMPRESSION: No acute intracranial findings. N.B. : The above Results were Read Back by Nick Bardales MD to Lucio Trivedi MD, and understanding confirmed on 04/22/2023 20:54:50 (ET). Electronically Signed: Nick Bardales MD at 20:51 EDT Reading Location ID and State: [facility] / [place] Tel , Service support , Head/Neck CTA 04/22/23 20:36 IMPRESSION: No significant major vessel vaso-occlusive disease in the head or neck. Electronically Signed: Nick Bardales MD at 21:24 EDT Reading Location ID and State: [facility] / [place] Tel , Service support , ADDENDUM: 04/22/23 2132 IMPRESSION: No significant major vessel vaso-occlusive disease in the head or neck. N.B. : The above Results were Read Back by Nick Bardales MD to Lucio Trivedi MD, and understanding confirmed on 04/22/2023 21:25:56 (ET). Electronically Signed: Nick Bardales MD at 21:24 EDT Reading Location ID and State: [facility] / [place] Tel , Service support , Chest X-Ray 04/22/23 21:28 IMPRESSION: No radiographic evidence of acute cardiopulmonary disease. Electronically Signed: Nick Bardales MD at 21:59 EDT , Carotid Duplex 04/23/23 05:55 Interpretation Summary irregular plaque at the proximal right internal carotid artery with less than 50% stenosis Less than 50% stenosis right external carotid artery Patent and antegrade right vertebral Minimal irregular plaque at the proximal left internal carotid artery with less than 50% stenosis Less than 50% stenosis left external carotid artery Patent, proximal left vertebral artery stent. Velocity within the left proximal vertebral artery within the area that is stented is 122.9 cm second peak systolic flow. Aliasing is seen within this area possibly consistent with greater than 50% stenosis.. Velocity within the more distal left vertebral artery is 40 cm/s which is similar to the right vertebral. Consider CTA if symptoms warrant. Ordering Physician: Renetta Abad Referring Physician: Jose Arita Performed By: Sunshine Perez, T Brain MRI 04/23/23 10:15 IMPRESSION: No acute intracranial abnormality. No interval change. Electronically Signed: Adolfo Martinez MD at 13:07 EDT , D/C Instructions Discharge Diet: Low fat / Low cholesterol Discharge Activity: Return to Normal Activity Meaningful Use Info Meaningful Use Diagnoses (Choose all that apply): None applicable Discharge Plan Admission Admit Date/Time: 04/22/23 21:16 Primary Reason for Your Visit: R Eye peripheral blurred vision Attending Provider: Korin Hare Primary Care Provider: Jose Arita Consulting Providers: Renetta Abad Instructions Additional Instructions / Restrictions: 1. Please follow-up with your PCP as discussed to further address your elevated cholesterol Discharge Orders/Prescriptions Prescriptions: Continued amlodipine 5 MG tablet 5 mg PO DAILY aspirin 81 MG tablet,delayed release (DR/EC) 81 mg PO DAILY allopurinol 100 mg tablet 100 mg PO DAILY Patient Comments: TAKE ONE TABLET BY MOUTH EVERY DAY omeprazole 40 mg capsule,delayed release(DR/EC) 40 mg PO DAILY Patient Comments: TAKE ONE CAPSULE BY MOUTH EVERY DAY zolpidem [Ambien] 10 mg Tablet 10 mg PO QHS PRN (Reason: Sleep) Hold Instructions: Resume on 07/22/22. Would consider discussing Ambien with your primary care physician prior to resuming given that it can also contribute to dizziness ramipril 5 MG capsule 10 mg PO DAILY vitamin B complex [Vitamins B Complex] Capsule 1 cap PO DAILY gabapentin 100 mg capsule 200 mg PO QHS PRN (Reason: nerve pain) Referrals / Follow Up: Jose Arita DO [Primary Care Provider] - Within 1 Month Disposition Disposition (needs filled in before D/C Order can be placed): Home, Self Care Charges/Coding Visit Charges Inpatient E&M: 35979 Disch Hosp
--- NOTE | 2023-04-23 13:42 | CASEMGMT ---
Patient has order for discharge. RN CM in to discuss needs at discharge. Patient and deny needs at discharge. Patient had no further questions or concerns at this time.
--- NOTE | 2023-04-23 14:32 | PHA.DC.MR.R ---
Pharmacy [place] Med Reconciliation Pharmacy Service has performed discharge medication reconciliation for this patient. The patient's discharge medication list was reviewed for discrepancies and discrepancies were resolved. Medications at Discharge Home Medications amlodipine 5 mg tablet 5 mg PO DAILY heart 10/31/19 aspirin 81 mg tablet,delayed release 81 mg PO DAILY heart 10/31/19 allopurinol 100 mg tablet 100 mg PO DAILY gout 07/16/22 omeprazole 40 mg capsule,delayed release 40 mg PO DAILY gerd 07/16/22 ramipril 5 mg capsule 10 mg PO DAILY bp 07/16/22 zolpidem 10 mg tablet (Ambien) 10 mg PO QHS PRN Sleep 07/16/22 gabapentin 100 mg capsule 200 mg PO QHS PRN nerve pain 04/22/23 vitamin B complex (Vitamins B Complex capsule) 1 cap PO DAILY 04/22/23
[2023-04-29 07:17] LABS: Bedside Glucose 99 mg/dL (74-106)
== END 2023-04-23 14:24 | disposition home or self-care (01) ==
LOC: ED 21:00 → PCU 21:16
PROVIDERS: Admitting Provider Family Medicine; Emergency Provider Emergency Medicine; PCP Family Medicine; Visit Provider Internal Medicine
DX: H53.8 Other visual disturbances (principal); I10 Essential (primary) hypertension; Z79.82 Long term (current) use of aspirin; E78.5 Hyperlipidemia, unspecified; M10.9 Gout, unspecified; I69.922 Dysarthria following unspecified cerebrovascular disease; K21.9 Gastro-esophageal reflux disease without esophagitis; Z79.899 Other long term (current) drug therapy; R29.702 NIHSS score 2; R47.81 Slurred speech
CPT/HCPCS: 36415; 70450; 70496; 70498; 70551; 71045; 80048; 80053; 80061; 82962; 83036; 83735; 84443; 84484; 85025; 85610; 85730; 93005; 93880; 94668; 94762; 96360; 96361; 97802; 99221; 99285; J7030; Q9967; G0378

== ENCOUNTER → 2023-05-14 | Outpatient (CLI) | payer OTHER, SELFPAY ==
--- NOTE | 2023-05-18 11:54 | STRESSREP_ITS ---
Stress Test Report Exercise myocardial perfusion stress test. 52-year-old man with a history of chest pain Stress protocol: Resting EKG demonstrates normal sinus rhythm with a rate of 60 bpm resting blood pressure is 142/88 mmHg. The patient exercised according to the regular Demetrius protocol for a total duration of 9 minutes attaining a maximum heart rate of 151 bpm which was 90% of maximum predicted heart rate; the maximum workload was 10.1 metabolic equivalents. At rest there were no ST or T wave changes noted to suggest ischemia and at peak exercise upsloping ST changes only were noted which did not meet the criteria for ischemia. No clinical angina was noted the test was terminated due to the target heart rate being achieved/fatigue. The peak b lood pressure was 172/88 mmHg. Rate-pressure product was 25,900. Myocardial perfusion protocol. 12.0 mCi of technetium 99m sestamibi was injected at rest. The patient exercised according to regular Demetrius protocol for total duration of 9 minutes and at peak exercise 36 mCi of technetium 99m sestamibi was injected stress images were obtained stress and rest images were reconstructed in comparing the short axis vertical long and horizontal long axis. Gated images were also obtained. Perfusion SPECT analysis: Review of the stress images demonstrate normal uptake of tracer noted in all areas of the myocardium. The resting images similarly demonstrate normal uptake of tracer noted in all areas of the myocardium. No areas of reversibility are noted to suggest ischemia no previous infarct was noted. Gated SPECT analysis: The gated ejection fraction is 67%. Conclusion: Normal exercise myocardial perfusion stress test at a high workload Preserved ejection fraction.
== END | disposition home or self-care (01) ==
LOC: CVS 06:54
PROVIDERS: PCP Family Medicine; Referring Provider Internal Medicine Cardiovascular Disease; Visit Provider Internal Medicine Cardiovascular Disease
DX: R07.9 Chest pain, unspecified (principal); E78.00 Pure hypercholesterolemia, unspecified; I10 Essential (primary) hypertension; Z86.73 Personal history of transient ischemic attack (TIA), and cerebral infarction without residual deficits
CPT/HCPCS: 78452; 93017; A9500; A4216